=== PATIENT | female | born 1930 | race Caucasian/White ===

== ENCOUNTER → 2016-10-02 | Outpatient (CLI) | payer MEDICARE ==
[2016-10-02 08:38] LABS: ANION GAP 13 (5-19); BLOOD UREA NITROGEN 17 mg/dL (7-20); CALCIUM 9.3 mg/dL (8.4-10.2); CARBON DIOXIDE 31 mmol/L (22-30); CHLORIDE 102 mmol/L (98-107); CREATININE RESULT 0.64 mg/dL (0.52-1.25); GLUCOSE 124 mg/dL (75-110); POTASSIUM 4.4 mmol/L (3.6-5.0); SODIUM 145.9 mmol/L (137-145)
== END ==
LOC: LCAL 07:33
PROVIDERS: ATTEND Physician Assistant
DX: Z09 Encounter for follow-up examination after completed treatment for conditions other than malignant neoplasm (principal)
CPT/HCPCS: 36415; 80048

== ENCOUNTER 2017-03-04 16:56 | Inpatient (IN) | payer MEDICARE ==
--- NOTE | 2017-03-04 18:18 | ER Document Report ---
ED Fall - General Chief Complaint: Fall Injury Stated Complaint: FALL,RIGHT HIP PAIN Time Seen by Provider: 03/04/17 17:17 Notes: The patient is an 86-year-old female, PMHx HTN, DM, slight dementia, who presents from [facility] after she fell earlier today after she tried to grab a cart on wheels. She hit her right hip, right hand and right forehead. She is not on any blood thinners per [facility] notes. Pt 1 mg Dilaudid by EMS prior to arrival with relief of her pain. She is not in pain when she remains still. She denies open wounds, numbness, tingling, blurry vision, neck pain, chest pain, shortness of breath, abdominal pain, nausea or vomiting. TRAVEL OUTSIDE OF THE [place] IN LAST 30 DAYS: No - Related data Allergies/Adverse Reactions: morphine [Morphine] Allergy (Verified 11/22/12 19:07) Home Medications: Current Home Medications Acetaminophen [Tylenol Extra Strength] 500 mg PO Q8H PRN 03/04/17 [History] Allopurinol [Zyloprim 100 mg Tablet] 200 mg PO DAILY 03/04/17 [History] Carboxymethylcellulose Sodium [Refresh Tears] 15 ml OP ASDIR PRN 03/04/17 [ History] Donepezil HCl [Aricept 5 mg Tablet] 10 mg PO DAILY 03/04/17 [History] Ergocalciferol (Vitamin D2) [Ergocalciferol] 8,000 unit PO ASDIR PRN 03/04/17 [ History] Meclizine HCl 25 mg PO TID PRN 03/04/17 [History] Nystatin 1 each PO ASDIR PRN 03/04/17 [History] Past Medical History - General Information source: Patient - Social History Smoking Status: Never Smoker Chew tobacco use (# tins/day): No Frequency of alcohol use: None Drug Abuse: None Family History: Reviewed & Not Pertinent Review of Systems - Review of Systems Notes: REVIEW OF SYSTEMS: CONSTITUTIONAL: -fevers, -chills EENT: -eye pain, -difficulty swallowing, -nasal congestion CARDIOVASCULAR: -chest pain, -syncope. RESPIRATORY: -cough, -SOB GASTROINTESTINAL: -abdominal pain, -nausea, -vomiting, -diarrhea GENITOURINARY: -dysuria, -hematuria MUSCULOSKELETAL: +right hip and hand pain, -back pain, -neck pain SKIN: +right hand abrasion HEMATOLOGIC: -easy bruising or bleeding. LYMPHATIC: -swollen, enlarged glands. NEUROLOGICAL: -altered mental status or loss of consciousness, -headache, - neurologic symptoms PSYCHIATRIC: -anxiety, -depression. ALL OTHER SYSTEMS REVIEWED AND NEGATIVE. Physical Exam - Vital signs Vitals: Resp BP Pulse Ox 14 176/90 H 97 03/04/17 17:16 03/04/17 17:16 03/04/17 17:16 - Notes Notes: PHYSICAL EXAMINATION: GENERAL: Well-appearing, well-nourished and in no acute distress. HEAD: Right forehead contusion, normocephalic. EYES: Pupils equal round and reactive to light, extraocular movements intact, sclera anicteric, conjunctiva are normal. ENT: nares patent, oropharynx clear without exudates. Moist mucous membranes. NECK: Normal range of motion, supple without lymphadenopathy LUNGS: Breath sounds clear to auscultation bilaterally and equal. No wheezes rales or rhonchi. HEART: Regular rate and rhythm without murmurs ABDOMEN: Soft, nontender, normoactive bowel sounds. No guarding, no rebound. No masses appreciated. EXTREMITIES: Abrasions over right dorsal surface of right hand, tenderness over right lateral hip, strong distal pulses, no open wounds, N/V intact distally, painful right hip ROM, no pitting or edema. No cyanosis. NEUROLOGICAL: Cranial nerves grossly intact. Normal speech. Normal sensory and motor exams. PSYCH: Normal mood, normal affect. SKIN: Warm, Dry, normal turgor, no rashes or lesions noted. Course - Re-evaluation Re-evalutation: 03/04/17 19:38 Pt with impacted femoral neck fracture after fall. Fall was mechanical in nature. CT Head and x-ray of right hand negative for fractures or head bleeds. Spoke to Dr. Orta and he plans on operating in the morning. Will keep patient NPO after midnight. Pt's pain returned and will provide an additional dose of Dilaudid. Recommends admitting to hospitalist. 03/04/17 19:[address] Elizabeth and will admit to Inpatient Tele. - Vital Signs Vital signs: Temp Pulse Resp BP Pulse Ox 98.1 F 17 158/76 H 92 03/04/17 17:27 03/04/17 19:01 03/04/17 19:01 03/04/17 19:01 - Laboratory Result Diagrams: 03/04/17 18:20 03/04/17 18:20 Laboratory results interpreted by me: 03/04/17 03/04/17 18:20 18:20 RDW 15.4 H Glucose 154 H - Diagnostic Test Radiology reviewed: Image reviewed, Reports reviewed Radiology results interpreted by me: Right femoral x-ray: Impacted right hip fracture Right hand x-ray: NAD CT Head: NAD - EKG Interpretation by Me EKG shows normal: Sinus rhythm, [place], Intervals, QRS Complexes, ST-T Waves Rate: Normal Discharge - Discharge Clinical Impression: Right femoral fracture Qualifiers: Encounter type: initial encounter Femur location: neck Fracture type: closed Qualified Code(s): S72.001A - Fracture of unspecified part of neck of right femur, initial encounter for closed fracture Condition: Stable Disposition: ADMITTED INPATIENT Admitting Provider: [facility] Unit Admitted: Telemetry Referrals: JOSEPH HOU MD [Primary Care Provider] - Follow up as needed
--- NOTE | 2017-03-04 18:23 | RADIOLOGY REPORT (SQ) ---
EXAM DESCRIPTION: HIP RIGHT AP/LATERAL COMPLETED DATE/TIME: 03/04/2017 6:09 pm REASON FOR STUDY: right hip pain COMPARISON: None. NUMBER OF VIEWS: Two views. TECHNIQUE: AP pelvis and additional frog-leg view of the right hip. LIMITATIONS: None. FINDINGS: MINERALIZATION: Normal. RIGHT HIP: There is an impacted fracture of the femoral neck. LEFT HIP: No fracture or dislocation. No worrisome bone lesions. PUBIS AND ISCHIUM: No fracture. PELVIS: No fracture. SACRUM: No fracture or dislocation. No worrisome bone lesions. LOWER LUMBAR SPINE: No fracture or dislocation. No worrisome bone lesions. No significant disc disea se. SOFT TISSUES: No findings. OTHER: No other significant finding. IMPRESSION: Impacted fracture of the right femoral neck. TECHNICAL DOCUMENTATION: JOB ID: [id number] [employer]- All Rights Reserved
--- NOTE | 2017-03-04 18:23 | RADIOLOGY REPORT (SQ) ---
EXAM DESCRIPTION: CT HEAD WITHOUT COMPLETED DATE/TIME: 03/04/2017 6:12 pm REASON FOR STUDY: fall, head injury COMPARISON: 03/05/2016. TECHNIQUE: Axial images acquired through the brain without intravenous contrast. Images reviewed wi th bone, brain and subdural windows. Images stored on PACS. All CT scanners at this facility use dose modulation, iterative reconstruction, and/or weight based d osing when appropriate to reduce radiation dose to as low as reasonably achievable (ALARA). [facility]: Dose Right [facility]: CareDose [facility]: Dose Right [facility]: Teradose 4D [facility]: TalkSession RADIATION DOSE: Up-to-date CT equipment and radiation dose reduction techniques were employed. CTDIv ol: 64.6 mGy. DLP: 1034 mGy-cm.mGy. LIMITATIONS: None. FINDINGS: VENTRICLES: Prominent. CEREBRUM: No masses. No hemorrhage. No midline shift. Areas of low density in the white matter mos t likely due to chronic micro-vascular ischemic change. No evidence for acute infarction. CEREBELLUM: No masses. No hemorrhage. No alteration of density. No evidence for acute infarction. EXTRAAXIAL SPACES: Age-related involutional change. No fluid collections. No masses. ORBITS AND GLOBE: No intra- or extraconal masses. Normal contour of globe without masses. CALVARIUM: No fracture. PARANASAL SINUSES: No fluid or mucosal thickening. SOFT TISSUES: Small right frontal scalp hematoma. OTHER: No other significant finding. IMPRESSION: SOFT TISSUE INJURY WITHOUT FRACTURE OR ACUTE INTRACRANIAL PROCESS IDENTIFIED. TECHNICAL DOCUMENTATION: JOB ID: [id number] Quality ID # [id number]: Final reports with documentation of one or more dose reduction techniques (e.g., Au tomated exposure control, adjustment of the mA and/or kV according to patient size, use of iterative reconstruction technique) 2010 [employer]- All Rights Reserved
--- NOTE | 2017-03-04 18:25 | RADIOLOGY REPORT (SQ) ---
EXAM DESCRIPTION: HAND RIGHT 3 VIEWS COMPLETED DATE/TIME: 03/04/2017 6:09 pm REASON FOR STUDY: right hand injury COMPARISON: None. EXAM PARAMETERS: NUMBER OF VIEWS: Three views. TECHNIQUE: AP, lateral and oblique radiographic images acquired of the right hand. LIMITATIONS: Limited evaluation of areas that are obscured by a patient's IV and pulsometer. FINDINGS: MINERALIZATION: Osteopenia. BONES: No acute fracture or dislocation. No worrisome bone lesions. 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 SOFT TISSUES: No soft tissue swelling. No foreign body. OTHER: No other significant finding. IMPRESSION: DEGENERATIVE CHANGE ABOVE WITHOUT ACUTE OSSEOUS ABNORMALITY IDENTIFIED. TECHNICAL DOCUMENTATION: JOB ID: [id number] [employer]- All Rights Reserved
[2017-03-04 18:36] LABS: ABSOLUTE EOSINOPHILS # (AUTO) 0.1 10^3/uL (0.0-0.6); ABSOLUTE LYMPHOCYTES (AUTO) 1.6 10^3/uL (0.5-4.7); ABSOLUTE MONOCYTES (AUTO) 0.8 10^3/uL (0.1-1.4); ABSOLUTE NEUT (AUTO) 6.4 10^3/uL (1.7-8.2); BASOPHILS % (AUTO) 0.5 % (0-2); EOSINOPHILS % (AUTO) 1.1 % (0-6); HEMATOCRIT 39.3 % (36.0-47.0); HEMOGLOBIN 12.7 g/dL (12.0-15.5); HGB HCT DIFFERENCE -1.2; LYMPHOCYTES % (AUTO) 18.4 % (13-45); MEAN CORPUSCULAR HEMOGLOBIN 27.7 pg (27.0-33.4); MEAN CORPUSCULAR HGB CONC 32.3 g/dL (32.0-36.0); MEAN CORPUSCULAR VOLUME 86 fl (80-97); MONOCYTES % (AUTO) 8.5 % (3-13); RED BLOOD COUNT 4.58 10^6/uL (3.72-5.28); RED CELL DISTRIBUTION WIDTH 15.4 % (11.5-14.0); SEGMENTED NEUTROPHILS % (AUTO) 71.5 % (42-78); WHITE BLOOD COUNT 8.9 10^3/uL (4.0-10.5)
[2017-03-04 19:10] LABS: ANION GAP 12 (5-19); BLOOD UREA NITROGEN 14 mg/dL (7-20); CALCIUM 9.3 mg/dL (8.4-10.2); CARBON DIOXIDE 26 mmol/L (22-30); CHLORIDE 102 mmol/L (98-107); CREATININE RESULT 0.64 mg/dL (0.52-1.25); GLUCOSE 154 mg/dL (75-110); POTASSIUM 4.2 mmol/L (3.6-5.0); SODIUM 139.9 mmol/L (137-145)
[2017-03-04] MEDS ORDERED: HYDROMORPHONE HCL INJ/PF 2 MG/ML AMPULE IV ONE (19:35)
[2017-03-04 19:39] LABS: PARTIAL THROMBOPLASTIN TIME 28.4 SEC (23.5-35.8)
--- NOTE | 2017-03-04 20:01 | RADIOLOGY REPORT (SQ) ---
EXAM DESCRIPTION: CHEST SINGLE VIEW COMPLETED DATE/TIME: 03/04/2017 7:50 pm REASON FOR STUDY: pre-op COMPARISON: None. EXAM PARAMETERS: NUMBER OF VIEWS: One view. TECHNIQUE: Single frontal radiographic view of the chest acquired. RADIATION DOSE: NA LIMITATIONS: None. FINDINGS: LUNGS AND PLEURA: No opacities, masses or pneumothorax. No pleural effusion. MEDIASTINUM AND HILAR STRUCTURES: No masses. Contour normal. HEART AND VASCULAR STRUCTURES: Heart normal in size. Normal vasculature. BONES: No acute findings. HARDWARE: None in the chest. OTHER: No other significant finding. IMPRESSION: NO ACUTE RADIOGRAPHIC FINDING IN THE CHEST. TECHNICAL DOCUMENTATION: JOB ID: [id number]
[2017-03-04 20:31] LABS: ADD ON TESTING BLD IN LAB ACKNOWLEDGE
[2017-03-04] MEDS ORDERED: GLUCAGON,HUMAN RECOMB 1 MG INJ IM PRN (20:46)
[2017-03-04] MEDS ORDERED: DEXTROSE 40% GEL 15 GM TUBE PO PRN ×2 (20:46)
[2017-03-04] MEDS ORDERED: DEXTROSE 50%-WATER 25 GM/50 ML DISP.SYRIN IV PRN ×2 (20:46)
[2017-03-04] MEDS ORDERED: MAGNESIUM HYDROXIDE SUSP 30 ML UDCUP PO PRN (20:50)
[2017-03-04 20:52] LABS: ALANINE AMINOTRANSFERASE 31 U/L (9-52); ALBUMIN 4.3 g/dL (3.5-5.0); ALKALINE PHOSPHATASE 57 U/L (38-126); ASPARTATE AMINO TRANSFERASE 46 U/L (14-36); BILIRUBIN,DIRECT 0.4 mg/dL (0.0-0.4); BILIRUBIN,TOTAL 0.5 mg/dL (0.2-1.3); MAGNESIUM 1.8 mg/dL (1.6-2.3); TOTAL PROTEIN 8.1 g/dL (6.3-8.2)
[2017-03-04 21:09] LABS: APPEARANCE,URINE CLEAR; BILIRUBIN,URINE NEGATIVE (NEGATIVE); GLUCOSE, URINE NEGATIVE (NEGATIVE); KETONES,URINE NEGATIVE (NEGATIVE); LEUKOCYTE ESTERASE,URINE NEGATIVE (NEGATIVE); NITRITE,URINE NEGATIVE (NEGATIVE); PROTEIN,URINE NEGATIVE (NEGATIVE); URINE SPECIFIC GRAVITY 1.011; UROBILINOGEN,URINE NEGATIVE mg/dL (<2.0)
--- NOTE | 2017-03-04 21:15 | PDOC H&P ---
History of Present Illness Admission Date/PCP: 03/04/17 19:54 JOSEPH HOU MD [place], [place]--dizziness Cards Dr. Cook/Melida Patient complains of: right hip pain, s/p fall History of Present Illness: RUTH ANN MATUTE is a 86 year old female with underlying hypertension , type 2 diabetes mellitus, hypothyroidism, hyperlipidemia, mild reflux, mild bruising, arthritis and gout, "slight" dementia, along with partial hearing loss who presents to the emergency room for evaluation of above complaint. Patient has been discussed with emergency room physician who evaluated the patient. She is a resident of [facility]. As she was attempting to walk earlier today, she reached to grab a cart on wheels and it reportedly rolled out from under her. She fell, striking her right hand, hip, and forehead. No loss of consciousness. Workup has revealed closed right hip fracture. Emergency room physician has discussed with Dr. Orta, on-call orthopedics, who has agreed to manage her orthopedic problems. Prior to the above event, no specific complaints, including nausea vomiting, fever or chills, chest or abdominal pain, diarrhea or dysuria. Patient states that on a normal day, she tries to walk at least 1/2 mile a day, in various stages. Denies any dyspnea on exertion, chest pain or claudication. Currently resting quietly, having only mild discomfort at the injury site, which obviously worsens with any movement of or contact with site. Laboratory results are listed in [employer] and are reviewed. X-ray summary results are listed below, with full report(s) reviewed. . EKG reviewed. No old EKG available for comparison. Social history/personal habits: . Has lived at [facility] for approximately a year. No tobacco use since 1991. Rare alcohol use. Denies illicit drug use. Allergies/adverse reactions are listed in [employer] and are reviewed. No problems with Dilaudid. Uncertain if she can tolerate Percocet or Vicodin. Home medications initially autopopulated into [employer] may not accurately reflect patient's true medications, dosages, and/or frequencies. surveillance technician has reconciled her medications from [facility]. REVIEW OF SYSTEMS: Constitutional: No fever or chills. Eyes: Wears glasses ENT: No swallowing problems or complaints. Partial hearing loss. Pulmonary: No current complaints. Cardiovascular: No current complaints, including chest pain. Gastrointestinal: No current complaints, including nausea or vomiting. Skin: No current complaints, including rashes. Hematologic: Easy bruising. Neurologic: No current complaints, including numbness or tingling. Musculoskeletal: See history and present illness. Psychiatric: Denies anxiety or depression. Endocrine: No current complaints, including polyuria. Genitourinary: No current complaints, including dysuria. PHYSICAL EXAMINATION: 5 feet 6 inches tall. 85.3 kg. BMI 30.3 kg/m. Blood pressure 135/77. Pulse 73 and regular. 94% saturation on 1-1/2 L oxygen per nasal cannula. Respirations are 12 and unlabored. Temperature 98.1. Slightly obese otherwise well-developed elderly female appearing perhaps a bit younger than her stated age. Smiling pleasant awake alert and cooperative. No obvious distress other than perhaps mildly anxious. Sister, granddaughter, and son-in-law are present at her side; patient approves Skin is warm and dry. No grossly obvious evidence of rash in areas of skin examined. No subcutaneous nodules palpated. ENT: Slightly hard of hearing to normal conversation. Tongue midline on protrusion pink and slightly tacky. Eyes: No scleral icterus. Pupils equal and reactive to light at 4 mm. [place] conjunctivae. Very mild soft tissue swelling and ecchymosis at the lateral aspect of her right eyebrow. No obvious evidence of globe injury. Neck is supple and nontender to gentle active range of motion and palpation. Midline trachea. No palpable thyroid nodule mass enlargement or tenderness. Lymphatic: No palpable cervical or clavicular nodes. Neck and lymphatic exams limited by patient body habitus. Psychiatric: Reasonable insight into acute and chronic medical issues. Oriented to time location and why here. Lungs: Auscultation reveals clear and equal breath sounds bilaterally. No use of accessory respiratory muscles. Cardiovascular: Heart regular rate and rhythm, without gallop murmur or rub. No carotid or abdominal aortic bruits. No ankle or pedal edema. Faintly palpable dorsalis pedis pulses. Abdomen:soft slightly obese nontender with positive bowel sounds. Unable to adequately evaluate abdomen for masses or organomegaly due to body habitus. Extremities: Feet are warm and dry. No calf tenderness to compression. No grossly obvious visual evidence of calf swelling. Gentle manipulation of left lower extremity fails to reveal any obvious evidence of injury or instability to the hip or ankle. Slight external rotation and shortening of the right lower extremity; no manipulation attempted due to her injury. Neurologic: Moves upper extremities grossly normally. Left patellar reflex absent; not attempted on right due to her injury. Absent Babinski. Light touch is intact at feet. Dorsiflexion and plantarflexion of feet 5 / 5 and symmetric. - Past Medical History Cardiac Medical History: Reports: Hyperlipidema, Hypertension Denies: Congestive Heart Failure, DVT, Myocardial Infarction, Pulmonary Embolism Pulmonary Medical History: Denies: Asthma, Chronic Obstructive Pulmonary Disease (COPD), Sleep Apnea EENT Medical History: Reports: Eyes - Wears glasses, Ears - Partial hearing loss Denies: Throat Neurological Medical History: Denies: Hemorrhagic CVA, Ischemic CVA, Seizures Endocrine Medical History: Reports: Diabetes Mellitus Type 2, Hypothyroidism Denies: Diabetes Mellitus Type 1, Hyperthyroidism Renal/ Medical History: Reports: Other - "Overactive bladder" Malignancy Medical History: Reports: Skin Cancer - Previous excision of GI Medical History: Reports: Gastroesophageal Reflux Disease - Mild Denies: Cirrhosis, Hepatitis, Peptic Ulcer Disease Musculoskeltal Medical History: Reports: Arthritis, Gout Skin Medical History: Reports: None Psychiatric Medical History: Denies: Alcohol Dependency, Depression, General Anxiety Disorder, Substance Abuse, Tobacco Dependency Hematology: Reports: Other - Easy bruising Infectious Medical History: Denies: Clostridium Difficile, Hepatitis B, Hepatitis C, Methicillin- Resistant Staph Aureus Past Surgical History Past Surgical History: Reports: Hysterectomy, Orthopedic Surgery - Back surgery , Other - Excision of skin cancers; thyroid surgery Social History Information Source: Patient, Emergency Med Personnel, [facility] Records [facility] Smoking Status: Former Smoker Frequency of Alcohol Use: Rare Drugs: None - Advance Directive Resuscitation Status: Full Code Surrogate healthcare decision maker:: Son-in-law Chi, and sister Fozia Family History Family History: Reviewed & Not Pertinent Parental Family History Reviewed: Yes - Father of cirrhosis; mother of congestive heart failure Children Family History Reviewed: Yes - Sibling(s) Family History Reviewed.: Yes Medication/Allergy Home Medications: Glipizide [Glucotrol Xl 5 mg Tab.er] 5 mg PO BID 11/22/12 Levothyroxine Sodium [Synthroid 0.1 mg Tablet] 100 mcg PO DAILY 11/22/12 Metformin HCl [Glucophage 500 mg Tablet] 500 mg PO BIDACBS 11/22/12 Metoprolol Tartrate [Lopressor 50 mg Tablet] 50 mg PO Q12 11/22/12 Pravastatin Sodium [Pravachol] 20 mg PO QHS 11/22/12 Sertraline HCl [Zoloft 50 mg Tablet] 50 mg PO QHS 11/22/12 Valsartan [Diovan] 320 mg PO DAILY 11/22/12 Allopurinol [Zyloprim 100 mg Tablet] 200 mg PO DAILY 03/04/17 Amlodipine Besylate [Norvasc 5 mg Tablet] 5 mg PO DAILY 03/04/17 Carboxymethylcellulose Sodium [Refresh Tears] 1 drop OU Q2HP PRN 03/04/17 Clotrimazole 1 applic TP DAILY 03/04/17 Donepezil HCl [Aricept 5 mg Tablet] 10 mg PO DAILY 03/04/17 Ergocalciferol (Vitamin D2) [Vitamin D2] 50,000 unit PO WE@1000 03/04/17 Loperamide HCl [Imodium A-D] 2 mg PO DAILYP PRN 03/04/17 Meclizine HCl 25 mg PO TID PRN 03/04/17 Nystatin 1 each PO DAILYP PRN 03/04/17 Solifenacin Succinate [Vesicare] 5 mg PO DAILY 03/04/17 Docusate Sodium [Colace 100 mg Capsule] 100 mg PO BID capsule 03/07/17 Enoxaparin Sodium [Lovenox Inj 40 mg/0.4 ml Disp.syrin] 40 mg SUBCUT QHS disp.syrin 03/07/17 Magnesium Hydroxide [Milk of Magnesia 30 ml Udcup] 30 ml PO Q48HP PRN udc 03/07 Oxycodone HCl 5 mg PO Q6HP PRN #10 capsule 03/07/17 Allergies/Adverse Reactions: morphine [Morphine] Allergy (Verified 03/04/17 20:49) rash Physical Exam Vital Signs: Temp Pulse Resp BP Pulse Ox 98.1 F 17 135/77 H 95 03/04/17 17:27 03/04/17 20:02 03/04/17 20:02 03/04/17 20:02 Results Impressions: Hip/Pelvis X-Ray 03/04/17 17:17 IMPRESSION: Impacted fracture of the right femoral neck. Hand X-Ray 03/04/17 17:49 IMPRESSION: DEGENERATIVE CHANGE ABOVE WITHOUT ACUTE OSSEOUS ABNORMALITY IDENTIFIED. Head CT 03/04/17 17:49 IMPRESSION: SOFT TISSUE INJURY WITHOUT FRACTURE OR ACUTE INTRACRANIAL PROCESS IDENTIFIED. Chest X-Ray 03/04/17 19:34 IMPRESSION: NO ACUTE RADIOGRAPHIC FINDING IN THE CHEST. Assessment & Plan - Diagnosis (1) Fracture of femoral neck, right, closed Qualifiers: Encounter type: initial encounter Qualified Code(s): S72.001A - Fracture of unspecified part of neck of right femur, initial encounter for closed fracture Is this a current diagnosis for this admission?: YesPlan: Orthopedics consult; Dr. Orta has been contacted by emergency room physician; he agrees to manage her injury. Preop cardiology consult. Knee high SCDs for DVT prophylaxis; medication prophylaxis per orthopedics, per usual protocol. Impression and plans were discussed with patient and family, all of whom concur. Time spent in evaluation and management of patient: 73 minutes. (2) Diabetes mellitus type 2 in obese Is this a current diagnosis for this admission?: YesPlan: Diabetic cardiac diet. N.p.o. after midnight for planned surgery on the . Accu-Cheks with appropriate sliding scale coverage. Resume home medications as appropriate once these have been determined and reviewed. (3) HLD (hyperlipidemia) Qualifiers: Hyperlipidemia type: unspecified Qualified Code(s): E78.5 - Hyperlipidemia, unspecified Is this a current diagnosis for this admission?: YesPlan: Resume home medications as appropriate once these have been determined and reviewed. (4) HTN (hypertension) Qualifiers: Hypertension type: essential hypertension Qualified Code(s): I10 - Essential (primary) hypertension Is this a current diagnosis for this admission?: YesPlan: Resume home medications as appropriate once these have been determined and reviewed. (5) Hypothyroid Qualifiers: Hypothyroidism type: unspecified Qualified Code(s): E03.9 - Hypothyroidism, unspecified Is this a current diagnosis for this admission?: YesPlan: TSH pending. Resume home medications as appropriate once these have been determined and reviewed. - Inpatient Certification Based on my medical assessment, after consideration of the patient's comorbidities, presenting symptoms, or acuity I expect that the services needed warrant INPATIENT care.: Yes I certify that my determination is in accordance with my understanding of Medicare's requirements for reasonable and necessary INPATIENT services [42 CFR 412.3e].: Yes Medical Necessity: Need for Pain Control, Need for Surgery, Risk of Diagnosis Which Will Require Inpatient Eval/Care/Monitoring Post Hospital Care: D/C or Transfer Summary
[2017-03-04] MEDS: ATORVASTATIN CALCIUM 10 MG TABLET PO SCH (22:13)
[2017-03-04] MEDS: METOPROLOL TARTRATE 50 MG TABLET PO SCH (22:13)
--- NOTE | 2017-03-04 22:28 | EKG REPORT ---
SEVERITY:- ABNORMAL ECG - SINUS RHYTHM MULTIPLE ATRIAL PREMATURE COMPLEXES PROBABLE INFERIOR INFARCT, OLD ABNRM R PROG, CONSIDER ASMI OR LEAD PLACEMENT : Confirmed by: Yue Singh 04-Mar-2017 22:28:00
[2017-03-04] MEDS ORDERED: POLYVINYL ALCOHOL 1.4% OPH SOLN 15 ML OU PRN (23:15)
[2017-03-04 23:48] LABS: FREE T3 4.06 pg/mL (2.77-5.27)
[2017-03-04] MEDS: HYDROMORPHONE HCL INJ/PF 2 MG/ML AMPULE IV PRN (23:54)
[2017-03-05] MEDS ORDERED: NORMAL SALINE 1000 ML 1,000 ML IV PRN (00:01)
[2017-03-05] MEDS: HYDROMORPHONE HCL INJ/PF 2 MG/ML AMPULE IV PRN ×3 (03:42→23:51)
--- NOTE | 2017-03-05 07:45 | PDOC CONSULTATION ---
Consultation Consult Date: 03/05/17 Consult reason:: Hip pain History of Present Illness Admission Date/PCP: 03/04/17 20:50 JOSEPH HOU MD History of Present Illness: Patient is a year-old white female with a component of dementia who fell and was unable to weight-bear on her right lower extremity. She was evaluated in emergency room where a valgus impacted right femoral neck fracture was identified. Orthopedics is consulted for fracture management. Past Medical History Cardiac Medical History: Reports: Hyperlipidema, Hypertension Denies: Congestive Heart Failure, DVT, Myocardial Infarction, Pulmonary Embolism Pulmonary Medical History: Denies: Asthma, Chronic Obstructive Pulmonary Disease (COPD), Sleep Apnea EENT Medical History: Reports: Eyes - Wears glasses, Ears - Partial hearing loss , Other - Easy bruising Denies: Throat Neurological Medical History: Denies: Hemorrhagic CVA, Ischemic CVA, Seizures Endocrine Medical History: Reports: Diabetes Mellitus Type 2, Hypothyroidism Denies: Diabetes Mellitus Type 1, Hyperthyroidism Renal/ Medical History: Reports: Other - "Overactive bladder" Malignancy Medical History: Reports: Skin Cancer - Previous excision of GI Medical History: Reports: Gastroesophageal Reflux Disease - Mild Denies: Cirrhosis, Hepatitis, Peptic Ulcer Disease Musculoskeltal Medical History: Reports: Arthritis, Gout Skin Medical History: Reports: None Psychiatric Medical History: Denies: Alcohol Dependency, Depression, General Anxiety Disorder, Substance Abuse, Tobacco Dependency Hematology: Reports: Other - Easy bruising Infectious Medical History: Denies: Clostridium Difficile, Hepatitis B, Hepatitis C, Methicillin- Resistant Staph Aureus Past Surgical History Past Surgical History: Reports: Hysterectomy, Orthopedic Surgery - Back surgery , Other - Excision of skin cancers; thyroid surgery Social [facility] Information [facility] Smoking Status: Former Smoker Frequency of Alcohol Use: Rare Drugs: None Hx Prescription Drug Abuse: No - Advance Directive Resuscitation Status: Full Code Family History Family History: Reviewed & Not Pertinent Parental Family History Reviewed: No Children Family History Reviewed: No Sibling(s) Family History Reviewed.: No Medication/Allergy Home Medications: Glipizide [Glucotrol Xl 5 mg Tab.er] 5 mg PO BID 11/22/12 Levothyroxine Sodium [Synthroid 100 Mcg Tablet] 100 mcg PO DAILY 11/22/12 Metformin HCl [Glucophage 500 Mg Tablet] 500 mg PO BIDACBS 11/22/12 Metoprolol Tartrate [Lopressor 50 mg Tablet] 50 mg PO Q12 11/22/12 Pravastatin Sodium [Pravachol] 20 mg PO QHS 11/22/12 Sertraline HCl [Zoloft 50 Mg Tablet] 50 mg PO QHS 11/22/12 Valsartan [Diovan] 320 mg PO DAILY 11/22/12 Acetaminophen [Tylenol Extra Strength] 500 mg PO Q8H PRN 03/04/17 Allopurinol [Zyloprim 100 mg Tablet] 200 mg PO DAILY 03/04/17 Amlodipine Besylate [Norvasc 5 mg Tablet] 5 mg PO DAILY 03/04/17 Carboxymethylcellulose Sodium [Refresh Tears] 1 drop OU Q2HP PRN 03/04/17 Clotrimazole 1 applic TP DAILY 03/04/17 Colchicine [Colchicine 0.6 mg Tablet] 0.6 mg PO Q2HP PRN 03/04/17 Colchicine [Colchicine 0.6 mg Tablet] 1.2 mg PO ASDIR PRN 03/04/17 Donepezil HCl [Aricept 5 mg Tablet] 10 mg PO DAILY 03/04/17 Ergocalciferol (Vitamin D2) [Vitamin D2] 50,000 unit PO WE@1000 03/04/17 Guaifenesin/P-Ephed HCl [Pseudoephedrine-Guaif Sr Tab] 1 tab PO Q12HP PRN Loperamide HCl [Imodium A-D] 2 mg PO DAILYP PRN 03/04/17 Meclizine HCl 25 mg PO TID PRN 03/04/17 Nystatin 1 each PO DAILYP PRN 03/04/17 Solifenacin Succinate [Vesicare] 5 mg PO DAILY 03/04/17 Allergies/Adverse Reactions: morphine [Morphine] Allergy (Verified 03/04/17 20:49) rash Review of Systems ROS unobtainable: Due to mental status Physical Exam Vital Signs: Temp Pulse Resp BP Pulse Ox 37.0 C 73 17 154/77 H 94 03/05/17 03:50 03/05/17 03:50 03/05/17 03:50 03/05/17 03:50 03/05/17 03:50 Intake & Output 03/04/17 03/05/17 03/06/17 06:59 06:59 06:59 Intake Total 343 Balance 343 General appearance: PRESENT: mild distress Head exam: PRESENT: normocephalic Respiratory exam: PRESENT: unlabored Cardiovascular exam: PRESENT: RRR Pulses: PRESENT: +1 pedal pulses bilateral Vascular exam: PRESENT: normal capillary refill GI/Abdominal exam: PRESENT: soft Rectal exam: PRESENT: deferred Extremities exam: PRESENT: other - Lengths are equal. Any passive range of motion of the right lower extremity results in pain. Neurological exam: PRESENT: alert, awake, oriented to person Skin exam: PRESENT: dry, intact, warm. ABSENT: cyanosis, rash Results Laboratory Results: 03/04/17 23:05 Free T4 1.20 Free T3 pg/mL 4.06 Impressions: Hip/Pelvis X-Ray 03/04/17 17:17 IMPRESSION: Impacted fracture of the right femoral neck. Hand X-Ray 03/04/17 17:49 IMPRESSION: DEGENERATIVE CHANGE ABOVE WITHOUT ACUTE OSSEOUS ABNORMALITY IDENTIFIED. Head CT 03/04/17 17:49 IMPRESSION: SOFT TISSUE INJURY WITHOUT FRACTURE OR ACUTE INTRACRANIAL PROCESS IDENTIFIED. Chest X-Ray 03/04/17 19:34 IMPRESSION: NO ACUTE RADIOGRAPHIC FINDING IN THE CHEST. Status: Imported from PACS Assessment & Plan - Diagnosis (1) Right femoral fracture Qualifiers: Encounter type: initial encounter Femur location: neck Fracture type: closed Qualified Code(s): S72.001A - Fracture of unspecified part of neck of right femur, initial encounter for closed fracture Is this a current diagnosis for this admission?: YesPlan: 86-year-old white female with a minimally displaced right femoral neck fracture. I think the simplest solution would be percutaneous pinning under nail MAC anesthesia. Attempt will be scheduled for later today pending on OR availability. - Time Time Spent: 50 to 70 Minutes Anticipated discharge: SNF Within: Other
[2017-03-05] MEDS ORDERED: CEFAZOLIN 2 GM/D5W RTU 2 GM/50 ML RTUPB IV PRN (07:49)
[2017-03-05] MEDS ORDERED: KETOROLAC TROMETHAMINE INJ/PF 30 MG/1 ML SDV IV ONE (08:05)
[2017-03-05] MEDS: RINGERS SOLUTION,LACTATED 1,000 ML IV PRN ×3 (08:33→21:53)
[2017-03-05] MEDS ORDERED: BUPIVACAINE HCL 0.25% /EPINEPHRINE INJ/PF 30 ML SDV ONE (08:58)
[2017-03-05] MEDS ORDERED: LIDOCAINE 1% INJ-PF (10 MG/ML) 30 ML SDV ONE (08:58)
[2017-03-05] MEDS ORDERED: MIDAZOLAM 2 MG/2 ML INJ ONE (09:03)
[2017-03-05] MEDS ORDERED: PROPOFOL INJ 200 MG/20 ML VIAL IV ONE (09:03)
[2017-03-05] MEDS ORDERED: HYDROMORPHONE HCL INJ/PF 2 MG/ML AMPULE ONE (09:03)
[2017-03-05] MEDS ORDERED: CEFAZOLIN INJ 1 GM VIAL ONE (09:04)
[2017-03-05] MEDS ORDERED: FENTANYL CITRATE INJ/PF 100 MCG/2 ML AMPUL IV PRN ×3 (09:58)
[2017-03-05] MEDS ORDERED: ERGOCALCIFEROL (VITAMIN D2) 50000 UNIT (1.25 MG) CAPSULE PO SCH (10:00)
[2017-03-05] MEDS ORDERED: ALLOPURINOL 100 MG TABLET PO SCH (10:00)
[2017-03-05] MEDS ORDERED: (PENDING PHARMACY ID) (Valsartan [Diovan] 320 MG) PO SCH (10:00)
--- NOTE | 2017-03-05 10:26 | Operative Report ---
Operative Report DATE OF SURGERY: 03/05/17 PREOPERATIVE DIAGNOSIS: Right femoral neck fracture OPERATION: Cutaneous fixation right femoral neck fracture SURGEON: VINCE YATES ANESTHESIA: LMAC PROCEDURE: Patient supine on the fracture table the right hip fracture is evaluated fluoroscopically. In AP projection it is absolutely anatomic. In the lateral projection there is an angular gap anteriorly at the base of the femoral neck. This is attempted to be reduced with a combination of gentle distraction and internal rotation of the lower extremity with a significant improvement in. Subsequently the skin is prepped and draped in a sterile fashion. A 1 inch was made and sharp dissection was carried incision down to the cortical bone. Under fluoroscopic guidance 3 guide pins were placed for the [place] 6.5 titanium system through the lateral cortex and up into the femoral neck and head. Subsequently a 90, 95, and 100 screw were placed over the guide tips to appropriate depth. Fracture reduction as well as the screw is assessed fluoroscopically and felt to be adequate. The pins are removed. The wound is irrigated. It is closed with interrupted Vicryl followed by raymundo. Sterile dressings applied and the patient's return to the PACU.
[2017-03-05] MEDS: VALSARTAN 160 MG TABLET PO SCH (10:31)
[2017-03-05] MEDS ORDERED: RINGERS SOLUTION,LACTATED 1,000 ML IV PRN ×2 (10:56→11:50)
--- NOTE | 2017-03-05 11:01 | RADIOLOGY REPORT (SQ) ---
EXAM DESCRIPTION: HIP IN OPERATING RM; NO CHG FLUORO COMPLETED DATE/TIME: 03/05/2017 10:45 am REASON FOR STUDY: PERC RIGHT HIP PINNING ASSISTED WITH C-ARM FLUORO COMPARISON: None. FLUOROSCOPY TIME: 0.8 minutes 3 images saved to PACS. TECHNIQUE: Intra-operative images acquired during surgical procedure to evaluate progress. NUMBER OF IMAGES: 3 spot fluoroscopic images LIMITATIONS: None. FINDINGS: 3 spot fluoroscopic images submitted for review from intraoperative guidance of right hip open reduction internal fixation. Image demonstrates 3 cannulated lag screws engaging the femoral ne ck and head. The known fracture involving the neck of the femur he is not well appreciated on the fl uoroscopic images. Please see operative report for full details regarding procedure IMPRESSION: IMAGE(S) OBTAINED DURING PROCEDURE. COMMENT: Quality ID [id number]: Final reports for procedures using fluoroscopy that document radiation exp osure indices, or exposure time and number of fluorographic images (if radiation exposure indices are not available) Please consult full operative report of the attending physician for description of the procedure. TECHNICAL DOCUMENTATION: JOB ID: [id number] [employer]- All Rights Reserved
[2017-03-05] MEDS ORDERED: ENOXAPARIN SODIUM INJ 30 MG/0.3 ML DISP.SYRIN SUBCUT ONE (12:00)
[2017-03-05] MEDS: ACETAMINOPHEN 325 MG TABLET PO PRN (12:56)
[2017-03-05] MEDS: DONEPEZIL HCL 5 MG TABLET PO SCH (12:57)
[2017-03-05] MEDS: DOCUSATE SODIUM 100 MG CAPSULE PO SCH ×2 (12:58→17:09)
[2017-03-05] MEDS: AMLODIPINE BESYLATE 5 MG TABLET PO SCH (13:02)
[2017-03-05] MEDS: LEVOTHYROXINE SODIUM 0.1 MG TABLET PO SCH (13:03)
[2017-03-05] MEDS: METOPROLOL TARTRATE 50 MG TABLET PO SCH ×2 (13:40→21:52)
[2017-03-05] MEDS: IBUPROFEN 800 MG in NORMAL SALINE 250 ML IV SCH ×2 (13:47→21:52)
--- NOTE | 2017-03-05 13:48 | PDOC PROGRESS REPORT ---
Subjective Progress Note for:: 03/05/17 Subjective:: reason for visit: f/u hip fx, HTN, DM hospital course: "RUTH ANN MATUTE is a 86 year old female with underlying hypertension, type 2 diabetes mellitus, hypothyroidism, hyperlipidemia, mild reflux, mild bruising, arthritis and gout, "slight" dementia, along with partial hearing loss who presents to the emergency room for evaluation of above complaint. She is a resident of [facility]. And she was attempting to walk earlier today, she reached to grab a cart on wheels and it reportedly rolled out from under her. She fell, striking her right hand hip and forehead. No loss of consciousness. Workup has revealed closed right hip fracture. Emergency room physician has discussed with Dr. Sanford, on-call orthopedics, who has agreed to manage her orthopedic problems. Prior to the above event, no specific complaints, including nausea vomiting, fever or chills , chest or abdominal pain, diarrhea or dysuria. Patient states that on a normal day, she tries to walk at least 1/2 mile a day [facility], in various stages. Never had one time. Denies any dyspnea on exertion, chest pain or claudication." i found her in bed with persistent mild distress related to the pain in her hip , dilaudid makes her very drowsy affecting her resp status and only temporarily controlling her pain. she reports sharp, stabbing, throbbing constant pain in the Rt hip radiating in to her thigh and knee, asct'd with nausea, worse with movement, some janessa rwith rest and pain meds. no other asct'd symptoms. she denies chest pain, palpitations, fever/chills, cough, phlegm, vomiting or diarrhea. ROS: all systems reviewed, see HPI, remaining systems negative Physical Exam Vital Signs: Temp Pulse Resp BP Pulse Ox 98.4 F 65 17 159/69 H 95 03/05/17 11:38 03/05/17 11:38 03/05/17 11:38 03/05/17 11:38 03/05/17 11:38 Intake & Output 03/04/17 03/05/17 03/06/17 06:59 06:59 06:59 Intake Total 343 750 Output Total 370 Balance 343 380 General appearance: PRESENT: mild distress, well-developed, well-nourished Head exam: PRESENT: atraumatic, normocephalic Eye exam: PRESENT: EOMI. ABSENT: conjunctival injection, scleral icterus Mouth exam: PRESENT: moist, neck supple Neck exam: PRESENT: full ROM. ABSENT: tracheal deviation Respiratory exam: PRESENT: clear to auscultation ramin. ABSENT: accessory muscle use, unlabored, wheezes Cardiovascular exam: PRESENT: RRR, systolic murmur - soft, maybe 2/6 murmur at apex Pulses: PRESENT: normal radial pulses, normal dorsalis pedis pul GI/Abdominal exam: PRESENT: normal bowel sounds, soft. ABSENT: tenderness Extremities exam: PRESENT: tenderness - bruising and swelling over the olecranon with tendernesss to palpation; good sensation distally and ROM at the ankle, no pallor, warm and dry skin distally Neurological exam: PRESENT: alert, awake, oriented to person, oriented to place , oriented to time Psychiatric exam: PRESENT: appropriate affect, normal mood Results Laboratory Results: 03/04/17 23:05 Free T4 1.20 Free T3 pg/mL 4.06 Impressions: Hip/Pelvis X-Ray 03/04/17 17:17 IMPRESSION: Impacted fracture of the right femoral neck. Hand X-Ray 03/04/17 17:49 IMPRESSION: DEGENERATIVE CHANGE ABOVE WITHOUT ACUTE OSSEOUS ABNORMALITY IDENTIFIED. Head CT 03/04/17 17:49 IMPRESSION: SOFT TISSUE INJURY WITHOUT FRACTURE OR ACUTE INTRACRANIAL PROCESS IDENTIFIED. Chest X-Ray 03/04/17 19:34 IMPRESSION: NO ACUTE RADIOGRAPHIC FINDING IN THE CHEST. Fluoroscopy 03/05/17 00:00 IMPRESSION: IMAGE(S) OBTAINED DURING PROCEDURE. Hip X-Ray 03/05/17 00:00 IMPRESSION: IMAGE(S) OBTAINED DURING PROCEDURE. Status: Image reviewed by me Assessment & Plan - Diagnosis (1) Fracture of femoral neck, right, closed Qualifiers: Encounter type: initial encounter Qualified Code(s): S72.001A - Fracture of unspecified part of neck of right femur, initial encounter for closed fracture Is this a current diagnosis for this admission?: YesPlan: dr sanford to the OR later today (2) Diabetes mellitus type 2 in obese Is this a current diagnosis for this admission?: YesPlan: continue home regimen, cover with SSI (3) HLD (hyperlipidemia) Qualifiers: Hyperlipidemia type: unspecified Qualified Code(s): E78.5 - Hyperlipidemia, unspecified Is this a current diagnosis for this admission?: YesPlan: continue home regimen (4) HTN (hypertension) Qualifiers: Hypertension type: essential hypertension Qualified Code(s): I10 - Essential (primary) hypertension Is this a current diagnosis for this admission?: YesPlan: continue home regimen; continue perioperative beta hector - Time Time Spent with patient: 15-24 minutes Anticipated discharge: Acute Rehab Within: within 72 hours
[2017-03-05] MEDS ORDERED: IBUPROFEN 800 MG in NORMAL SALINE 250 ML IV SCH (14:00)
[2017-03-05] MEDS ORDERED: ERGOCALCIFEROL (VITAMIN D2) 50000 UNIT (1.25 MG) CAPSULE PO ONE (17:00)
[2017-03-05] MEDS: INSULIN LISPRO 100 UNIT/ML 3 ML VIAL SUBCUT PRN ×2 (17:10→22:50)
[2017-03-05] MEDS: CEFAZOLIN 2 GM/D5W RTU 2 GM/50 ML RTUPB IV SCH (17:11)
[2017-03-05] MEDS ORDERED: CEFAZOLIN 2 GM/D5W RTU 2 GM/50 ML RTUPB IV SCH (18:00)
[2017-03-05] MEDS: ENOXAPARIN SODIUM INJ 40 MG/0.4 ML DISP.SYRIN SUBCUT SCH (21:51)
[2017-03-05] MEDS: ATORVASTATIN CALCIUM 10 MG TABLET PO SCH (21:52)
[2017-03-05] MEDS: SERTRALINE HCL 50 MG TABLET PO SCH (21:53)
[2017-03-05] MEDS ORDERED: ENOXAPARIN SODIUM INJ 30 MG/0.3 ML DISP.SYRIN SUBCUT SCH ×2 (22:00)
[2017-03-06] MEDS: CEFAZOLIN 2 GM/D5W RTU 2 GM/50 ML RTUPB IV SCH ×3 (02:02→17:08)
[2017-03-06 05:07] LABS: HEMATOCRIT 34.2 % (36.0-47.0); HEMOGLOBIN 11.1 g/dL (12.0-15.5); HGB HCT DIFFERENCE -0.9; MEAN CORPUSCULAR HEMOGLOBIN 27.8 pg (27.0-33.4); MEAN CORPUSCULAR HGB CONC 32.5 g/dL (32.0-36.0); MEAN CORPUSCULAR VOLUME 86 fl (80-97); RED CELL DISTRIBUTION WIDTH 15.5 % (11.5-14.0); WHITE BLOOD COUNT 10.8 10^3/uL (4.0-10.5)
[2017-03-06 05:22] LABS: ANION GAP 11 (5-19); BLOOD UREA NITROGEN 10 mg/dL (7-20); CALCIUM 8.8 mg/dL (8.4-10.2); CARBON DIOXIDE 27 mmol/L (22-30); CHLORIDE 103 mmol/L (98-107); CREATININE RESULT 0.53 mg/dL (0.52-1.25); GLUCOSE 176 mg/dL (75-110); POTASSIUM 4.2 mmol/L (3.6-5.0); SODIUM 140.8 mmol/L (137-145)
[2017-03-06] MEDS: IBUPROFEN 800 MG in NORMAL SALINE 250 ML IV SCH ×3 (06:00→22:01)
--- NOTE | 2017-03-06 06:58 | PDOC PROGRESS REPORT ---
Subjective Progress Note for:: 03/06/17 Subjective:: Patient reports less pain than yesterday Physical Exam Vital Signs: Temp Pulse Resp BP Pulse Ox 37.0 C 66 16 151/64 H 95 03/06/17 04:00 03/06/17 04:00 03/06/17 04:00 03/06/17 04:00 03/06/17 04:00 Intake & Output 03/04/17 03/05/17 03/06/17 06:59 06:59 06:59 Intake Total 343 2320 Output Total 2195 Balance 343 125 General appearance: PRESENT: no acute distress Head exam: PRESENT: normocephalic Respiratory exam: PRESENT: unlabored Cardiovascular exam: PRESENT: RRR Pulses: PRESENT: +1 pedal pulses bilateral GI/Abdominal exam: PRESENT: soft Rectal exam: PRESENT: deferred Extremities exam: PRESENT: other - Right lower extremity dressing clean dry and intact. There is mild tenderness to palpation. Passive range of motion of the right lower extremity is without significant discomfort. Leg lengths are equal. Distal neurovascular examination is intact. Neurological exam: PRESENT: alert Skin exam: PRESENT: dry, intact, warm. ABSENT: cyanosis, rash Results Laboratory Results: 03/06/17 04:15 03/06/17 04:15 03/06/17 03/06/17 04:15 04:15 WBC 10.8 H RBC 4.00 Hgb 11.1 L Hct 34.2 L MCV 86 MCH 27.8 MCHC 32.5 RDW 15.5 H Plt Count 181 Sodium 140.8 Potassium 4.2 Chloride 103 Carbon Dioxide 27 Anion Gap 11 BUN 10 Creatinine 0.53 Est GFR ( Amer) > 60 Est GFR (Non-Af Amer) > 60 Glucose 176 H Calcium 8.8 Impressions: Hip/Pelvis X-Ray 03/04/17 17:17 IMPRESSION: Impacted fracture of the right femoral neck. Hand X-Ray 03/04/17 17:49 IMPRESSION: DEGENERATIVE CHANGE ABOVE WITHOUT ACUTE OSSEOUS ABNORMALITY IDENTIFIED. Head CT 03/04/17 17:49 IMPRESSION: SOFT TISSUE INJURY WITHOUT FRACTURE OR ACUTE INTRACRANIAL PROCESS IDENTIFIED. Chest X-Ray 03/04/17 19:34 IMPRESSION: NO ACUTE RADIOGRAPHIC FINDING IN THE CHEST. Fluoroscopy 03/05/17 00:00 IMPRESSION: IMAGE(S) OBTAINED DURING PROCEDURE. Hip X-Ray 06/14/17 00:00 IMPRESSION: IMAGE(S) OBTAINED DURING PROCEDURE. Status: Imported from PACS Assessment & Plan - Diagnosis (1) Right femoral fracture Qualifiers: Encounter type: initial encounter Femur location: neck Fracture type: closed Qualified Code(s): S72.001A - Fracture of unspecified part of neck of right femur, initial encounter for closed fracture Is this a current diagnosis for this admission?: YesPlan: 86-year-old white female status post percutaneous pinning of a right femoral neck fracture yesterday. Plan will be for touchdown weightbearing for 6 weeks.
--- NOTE | 2017-03-06 08:54 | Physician Advisory Note ---
Physician Advisor ProgressNote .: Pursuant to the plan for [facility], I have reviewed the medical record for this patient. Physician Advisor Statement: Please consider documentin. "Possible Anemia of acute blood loss due to femur fx" - if you don't think it was all just hemodilution from IVF. [Hgb 12.7 dropped to 11.1, no previous H/H levels in computer records to compare.] Thanks! CK
[2017-03-06] MEDS: AMLODIPINE BESYLATE 5 MG TABLET PO SCH (10:07)
[2017-03-06] MEDS: METOPROLOL TARTRATE 50 MG TABLET PO SCH ×2 (10:07→22:02)
[2017-03-06] MEDS: DONEPEZIL HCL 5 MG TABLET PO SCH (10:07)
[2017-03-06] MEDS: DOCUSATE SODIUM 100 MG CAPSULE PO SCH ×2 (10:07→17:08)
[2017-03-06] MEDS: VALSARTAN 160 MG TABLET PO SCH (10:08)
[2017-03-06] MEDS: LEVOTHYROXINE SODIUM 0.1 MG TABLET PO SCH (10:08)
--- NOTE | 2017-03-06 10:54 | PDOC PROGRESS REPORT ---
Subjective Progress Note for:: 03/06/17 Subjective:: reason for visit: f/u hip fx, HTN, DM hospital course: "RUTH ANN MATUTE is a 86 year old female with underlying hypertension, type 2 diabetes mellitus, hypothyroidism, hyperlipidemia, mild reflux, mild bruising, arthritis and gout, "slight" dementia, along with partial hearing loss who presents to the emergency room for evaluation of above complaint. She is a resident of [facility]. And she was attempting to walk earlier today, she reached to grab a cart on wheels and it reportedly rolled out from under her. She fell, striking her right hand hip and forehead. No loss of consciousness. Workup has revealed closed right hip fracture. Emergency room physician has discussed with Dr. Orta, on-call orthopedics, who has agreed to manage her orthopedic problems. Prior to the above event, no specific complaints, including nausea vomiting, fever or chills , chest or abdominal pain, diarrhea or dysuria. Patient states that on a normal day, she tries to walk at least 1/2 mile a day [facility], in various stages. Never had one time. Denies any dyspnea on exertion, chest pain or claudication." i initially found her in bed with persistent mild distress related to the pain in her hip, dilaudid makes her very drowsy affecting her resp status and only temporarily controlling her pain. she reports her pain much improved after surgery and denies chest pain, palpitations, cough, fevers/chills, v/d/n ROS: all systems reviewed, see HPI, remaining systems negative Physical Exam Vital Signs: Temp Pulse Resp BP Pulse Ox 99.2 F 66 15 151/59 H 95 03/06/17 08:00 03/06/17 08:00 03/06/17 08:00 03/06/17 08:00 03/06/17 08:00 Intake & Output 03/05/17 03/06/17 03/07/17 06:59 06:59 06:59 Intake Total 343 2320 Output Total 2195 Balance 343 125 General appearance: PRESENT: no acute distress, well-developed, well-nourished Head exam: PRESENT: atraumatic, normocephalic Eye exam: ABSENT: conjunctival injection, scleral icterus Neck exam: PRESENT: full ROM. ABSENT: tracheal deviation Respiratory exam: PRESENT: clear to auscultation ramin. ABSENT: accessory muscle use Cardiovascular exam: PRESENT: RRR, systolic murmur - soft at the apex Pulses: PRESENT: normal radial pulses, normal dorsalis pedis pul Vascular exam: PRESENT: normal capillary refill GI/Abdominal exam: PRESENT: normal bowel sounds, soft. ABSENT: tenderness Extremities exam: ABSENT: calf tenderness, pedal edema Musculoskeletal exam: ABSENT: full ROM - decreased Rt hip due to pain, normal inspection - wound is c/d/i Neurological exam: PRESENT: alert, awake, oriented to person, oriented to place , oriented to situation, other - good sensation at the leg and foot Psychiatric exam: PRESENT: appropriate affect, normal mood Skin exam: PRESENT: warm. ABSENT: rash Results Laboratory Results: 03/06/17 04:15 03/06/17 04:15 03/06/17 03/06/17 04:15 04:15 WBC 10.8 H RBC 4.00 Hgb 11.1 L Hct 34.2 L MCV 86 MCH 27.8 MCHC 32.5 RDW 15.5 H Plt Count 181 Sodium 140.8 Potassium 4.2 Chloride 103 Carbon Dioxide 27 Anion Gap 11 BUN 10 Creatinine 0.53 Est GFR ( Amer) > 60 Est GFR (Non-Af Amer) > 60 Glucose 176 H Calcium 8.8 Impressions: Hip/Pelvis X-Ray 03/04/17 17:17 IMPRESSION: Impacted fracture of the right femoral neck. Hand X-Ray 03/04/17 17:49 IMPRESSION: DEGENERATIVE CHANGE ABOVE WITHOUT ACUTE OSSEOUS ABNORMALITY IDENTIFIED. Head CT 03/04/17 17:49 IMPRESSION: SOFT TISSUE INJURY WITHOUT FRACTURE OR ACUTE INTRACRANIAL PROCESS IDENTIFIED. Chest X-Ray 03/04/17 19:34 IMPRESSION: NO ACUTE RADIOGRAPHIC FINDING IN THE CHEST. Fluoroscopy 03/05/17 00:00 IMPRESSION: IMAGE(S) OBTAINED DURING PROCEDURE. Hip X-Ray 03/05/17 00:00 IMPRESSION: IMAGE(S) OBTAINED DURING PROCEDURE. Assessment & Plan - Diagnosis (1) Fracture of femoral neck, right, closed Qualifiers: Encounter type: initial encounter Qualified Code(s): S72.001A - Fracture of unspecified part of neck of right femur, initial encounter for closed fracture Is this a current diagnosis for this admission?: YesPlan: after mechanical fall; improved. s/p surgical repair, further care per ortho (2) Diabetes mellitus type 2 in obese Is this a current diagnosis for this admission?: YesPlan: continue home regimen, cover with SSI (3) HLD (hyperlipidemia) Qualifiers: Hyperlipidemia type: unspecified Qualified Code(s): E78.5 - Hyperlipidemia, unspecified Is this a current diagnosis for this admission?: YesPlan: continue home regimen (4) HTN (hypertension) Qualifiers: Hypertension type: essential hypertension Qualified Code(s): I10 - Essential (primary) hypertension Is this a current diagnosis for this admission?: YesPlan: continue home regimen; continue perioperative beta hector (5) Anemia Qualifiers: Anemia type: unspecified type Qualified Code(s): D64.9 - Anemia, unspecified Is this a current diagnosis for this admission?: YesPlan: slightly worse, likely related to long bone fracture, unclear whether acute blood loss related to surgery; trend H/H - Time Time Spent with patient: 15-24 minutes Anticipated discharge: Acute Rehab Within: within 24 hours - Plan Summary Plan Summary: start PT and await rehab placement; continue supportive otherwise
[2017-03-06] MEDS: INSULIN LISPRO 100 UNIT/ML 3 ML VIAL SUBCUT PRN ×3 (12:03→23:10)
[2017-03-06] MEDS ORDERED: MAGNESIUM HYDROXIDE SUSP 30 ML UDCUP PO PRN (12:37)
[2017-03-06] MEDS: HYDROMORPHONE HCL INJ/PF 2 MG/ML AMPULE IV PRN (20:36)
[2017-03-06] MEDS: SERTRALINE HCL 50 MG TABLET PO SCH (22:02)
[2017-03-06] MEDS: ATORVASTATIN CALCIUM 10 MG TABLET PO SCH (22:03)
[2017-03-06] MEDS: ENOXAPARIN SODIUM INJ 40 MG/0.4 ML DISP.SYRIN SUBCUT SCH (22:04)
--- NOTE | 2017-03-06 22:09 | XCELERA REPORT ---
[address] [address] Transthoracic Echocardiogram Report Name: RUTH ANN MATUTE Age: 86 yrs Gender: Female : 1930 Patient Status: Inpatient Patient Location: [id number]\A Study Date: 03/06/2017 02:21 PM Height: 66 in Weight: 188 lb BSA: 1.9 m2 Procedure: A two-dimensional transthoracic echocardiogram with color flow and Doppler was performed. Study Quality: Fair. Reason For Study: MURMUR History: MURMUR. Ordering Physician: LORENA SORIA Performed By: Mariama Marcos Interpretation Summary The left ventricle is normal in size. There is normal left ventricular wall thickness. LV EF is > than 70% Left ventricular systolic function is normal. Doppler measurements suggest normal left ventricular diastolic function The left ventricular wall motion is normal. There is no thrombus. There is no ventricular septal defect visualized. The right ventricle is normal in size and function. The right atrium is normal. The left atrial size is normal. The interatrial septum is intact with no evidence for an atrial septal defect. There is mild mitral annular calcification. There is no evidence of mitral valve prolapse. There is no mitral valve stenosis. There is a moderate amount of mitral regurgitation There is no aortic valvular vegetation. There is Aortic Sclerosis without stenosis. There is no LVOT obstruction. There is a mild amount of aortic regurgitation There is no tricuspid stenosis. There is a mild amount of tricuspid regurgitation There is mild pulmonary hypertension by echo RVSP is 44 mm of Hg , with RA mean of 5. There is no pericardial effusion. MMode/2D Measurements \T\ Calculations RVDd: 3.2 cm LVIDd: 5.1 cm FS: 49.2 % Ao root diam: 2.6 cm IVSd: 1.1 cm LVIDs: 2.6 cm EDV(Teich): 123.3 ml LVPWd: 0.95 cm ESV(Teich): 24.3 ml Ao root area: 5.3 cm2 EF(Teich): 80.3 % LA dimension: 3.9 cm Doppler Measurements \T\ Calculations MV E max nisha: MV P1/2t max nisha: Ao V2 max: AI max nisha: 146.1 cm/sec 145.6 cm/sec 184.2 cm/sec 312.2 cm/sec MV A max nisha: MV P1/2t: 50.7 msec Ao max PG: AI max P.8 cm/sec 13.6 mmHg 39.0 mmHg MV E/A: 1.5 MVA(P1/2t): 4.3 cm2 AI dec slope: MV dec slope: 841.1 cm/sec2 118.6 cm/sec2 MV dec time: AI P1/2t: 0.18 sec 770.9 msec LV V1 max PG: PA V2 max: TR max nisha: 5.7 mmHg 83.9 cm/sec 312.2 cm/sec LV V1 max: PA max P.8 mmHg TR max P.4 cm/sec 39.0 mmHg Left Ventricle The left ventricle is normal in size. There is normal left ventricular wall thickness. LV EF is > than 70%. Left ventricular systolic function is normal. Doppler measurements suggest normal left ventricular diastolic function. The left ventricular wall motion is normal. There is no thrombus. There is no ventricular septal defect visualized. Right Ventricle The right ventricle is normal in size and function. Atria The right atrium is normal. The left atrial size is normal. The interatrial septum is intact with no evidence for an atrial septal defect. Mitral Valve There is mild mitral annular calcification. There is no evidence of mitral valve prolapse. There is no vegetation seen on the mitral valve. There is no mitral valve stenosis. There is a moderate amount of mitral regurgitation. Aortic Valve The aortic valve is trileaflet. The aortic valve opens well. There is no aortic valvular vegetation. There is Aortic Sclerosis without stenosis. There is no LVOT obstruction. There is a mild amount of aortic regurgitation. Tricuspid Valve There is no tricuspid stenosis. There is a mild amount of tricuspid regurgitation. There is mild pulmonary hypertension by echo. RVSP is 44 mm of Hg , with RA mean of 5. Pulmonic Valve There is no pulmonic valvular stenosis. There is no pulmonic valvular regurgitation. Great Vessels The aortic root is normal size. Effusions There is no pericardial effusion. : LORENA SORIA > Lorena Soria
[2017-03-07] MEDS: CEFAZOLIN 2 GM/D5W RTU 2 GM/50 ML RTUPB IV SCH ×2 (01:31→09:02)
[2017-03-07] MEDS: HYDROMORPHONE HCL INJ/PF 2 MG/ML AMPULE IV PRN ×3 (02:52→22:33)
[2017-03-07] MEDS: IBUPROFEN 800 MG in NORMAL SALINE 250 ML IV SCH ×2 (05:14→13:47)
[2017-03-07] MEDS: DONEPEZIL HCL 5 MG TABLET PO SCH (09:02)
[2017-03-07] MEDS: LEVOTHYROXINE SODIUM 0.1 MG TABLET PO SCH (09:02)
[2017-03-07] MEDS: VALSARTAN 160 MG TABLET PO SCH (09:02)
[2017-03-07] MEDS: AMLODIPINE BESYLATE 5 MG TABLET PO SCH (09:02)
[2017-03-07] MEDS: INSULIN LISPRO 100 UNIT/ML 3 ML VIAL SUBCUT PRN ×2 (09:02→23:28)
[2017-03-07] MEDS: METOPROLOL TARTRATE 50 MG TABLET PO SCH ×2 (09:02→22:33)
[2017-03-07] MEDS: DOCUSATE SODIUM 100 MG CAPSULE PO SCH ×2 (09:02→17:48)
--- NOTE | 2017-03-07 09:31 | PDOC TRANSFER SUMMARY ---
General - Admit/Disc Date/PCP Admission Date/Primary Care Provider: 03/04/17 20:50 JOSEPH HOU MD Discharge Date: 03/07/17 - Discharge Diagnosis (1) Fracture of femoral neck, right, closed Is this a current diagnosis for this admission?: YesSummary: s/p surgical repair per dr orta; weight bearing and rehab per his instructions (2) Diabetes mellitus type 2 in obese Is this a current diagnosis for this admission?: YesSummary: controlled; continue home regimen (3) HLD (hyperlipidemia) Is this a current diagnosis for this admission?: YesSummary: controlled, continue home regimen (4) HTN (hypertension) Is this a current diagnosis for this admission?: YesSummary: controlled, continue home regimen (5) Anemia Is this a current diagnosis for this admission?: YesSummary: no evidence for acute blood loss, likely related to long bone fracture; f/u H/H per her PCP as needed or clinically indicated - Additional Information Resuscitation Status: Full Code Discharge Diet: As Tolerated, Regular Discharge Activity: Slowly Increase Activity, Supervised Activity - weight bearing per dr orta Home Medications: Glipizide [Glucotrol Xl 5 mg Tab.er] 5 mg PO BID 11/22/12 Levothyroxine Sodium [Synthroid 0.1 mg Tablet] 100 mcg PO DAILY 11/22/12 Metformin HCl [Glucophage 500 mg Tablet] 500 mg PO BIDACBS 11/22/12 Metoprolol Tartrate [Lopressor 50 mg Tablet] 50 mg PO Q12 11/22/12 Pravastatin Sodium [Pravachol] 20 mg PO QHS 11/22/12 Sertraline HCl [Zoloft 50 mg Tablet] 50 mg PO QHS 11/22/12 Valsartan [Diovan] 320 mg PO DAILY 11/22/12 Allopurinol [Zyloprim 100 mg Tablet] 200 mg PO DAILY 03/04/17 Amlodipine Besylate [Norvasc 5 mg Tablet] 5 mg PO DAILY 03/04/17 Carboxymethylcellulose Sodium [Refresh Tears] 1 drop OU Q2HP PRN 03/04/17 Clotrimazole 1 applic TP DAILY 03/04/17 Donepezil HCl [Aricept 5 mg Tablet] 10 mg PO DAILY 03/04/17 Ergocalciferol (Vitamin D2) [Vitamin D2] 50,000 unit PO WE@1000 03/04/17 Loperamide HCl [Imodium A-D] 2 mg PO DAILYP PRN 03/04/17 Meclizine HCl 25 mg PO TID PRN 03/04/17 Nystatin 1 each PO DAILYP PRN 03/04/17 Solifenacin Succinate [Vesicare] 5 mg PO DAILY 03/04/17 Docusate Sodium [Colace 100 mg Capsule] 100 mg PO BID capsule 03/07/17 Enoxaparin Sodium [Lovenox Inj 40 mg/0.4 ml Disp.syrin] 40 mg SUBCUT QHS disp.syrin 03/07/17 Magnesium Hydroxide [Milk of Magnesia 30 ml Udcup] 30 ml PO Q48HP PRN udc 03/07 Oxycodone HCl 5 mg PO Q6HP PRN #10 capsule 03/07/17 History of Present Illness Admission Date/PCP: 03/04/17 20:50 JOSEPH HOU MD Patient complains of: hip pain after fall History of Present Illness: RUTH ANN MATUTE is a 86 year old female with underlying hypertension , type 2 diabetes mellitus, hypothyroidism, hyperlipidemia, mild reflux, mild bruising, arthritis and gout, "slight" dementia, along with partial hearing loss who presents to the emergency room for evaluation of above complaint. She is a resident of [facility]. And she was attempting to walk earlier today , she reached to grab a cart on wheels and it reportedly rolled out from under her. She fell, striking her right hand hip and forehead. No loss of consciousness. Workup has revealed closed right hip fracture. Hospital Course Hospital Course: hospital course: "Emergency room physician has discussed with Dr. Orta, on- call orthopedics, who has agreed to manage her orthopedic problems. Prior to the above event, no specific complaints, including nausea vomiting, fever or chills, chest or abdominal pain, diarrhea or dysuria. Patient states that on a normal day, she tries to walk at least 1/2 mile a day [facility], in various stages. Never had one time. Denies any dyspnea on exertion, chest pain or claudication." i found her in bed with persistent mild distress related to the pain in her hip , dilaudid makes her very drowsy affecting her resp status and only temporarily controlling her pain. she reports sharp, stabbing, throbbing constant pain in the Rt hip radiating in to her thigh and knee, asct'd with nausea, worse with movement, some janessa rwith rest and pain meds. no other asct'd symptoms. she denies chest pain, palpitations, fever/chills, cough, phlegm, vomiting or diarrhea. she was admitted and underwent surgical repair same day by dr orta without complication, tolerating the procedure well. she is hemodynamically stable for transfer to rehab with weight bearing and rehab instructions per dr orta. alcocer removed prior to d/c. Rx for analgesics provided. f/u with PCP in one week for routine hospital f/u and f/u with ortho as instructed, wound care per dr orta. Physical Exam Vital Signs: Temp Pulse Resp BP Pulse Ox 98.3 F 62 18 151/73 H 98 03/07/17 07:37 03/07/17 07:37 03/07/17 07:37 03/07/17 07:37 03/07/17 07:37 Intake & Output 03/06/17 03/07/17 03/08/17 06:59 06:59 06:59 Intake Total 2320 2000 Output Total 2195 3000 Balance 125 -1000 Results Laboratory Results: 03/06/17 04:15 03/06/17 04:15 Impressions: Hip/Pelvis X-Ray 03/04/17 17:17 IMPRESSION: Impacted fracture of the right femoral neck. Hand X-Ray 03/04/17 17:49 IMPRESSION: DEGENERATIVE CHANGE ABOVE WITHOUT ACUTE OSSEOUS ABNORMALITY IDENTIFIED. Head CT 03/04/17 17:49 IMPRESSION: SOFT TISSUE INJURY WITHOUT FRACTURE OR ACUTE INTRACRANIAL PROCESS IDENTIFIED. Chest X-Ray 03/04/17 19:34 IMPRESSION: NO ACUTE RADIOGRAPHIC FINDING IN THE CHEST. Fluoroscopy 03/05/17 00:00 IMPRESSION: IMAGE(S) OBTAINED DURING PROCEDURE. Hip X-Ray 03/05/17 00:00 IMPRESSION: IMAGE(S) OBTAINED DURING PROCEDURE. Transfer Plan - Disposition Transfer Plan: to acute rehab for continuing care after surgical repair of her hip - Time Spent with Patient Time spent with patient: Greater than 30 Minutes Qualifiers PATEINT BEING DISCHARGED WITH ANY OF THE FOLLOWING DIAGNOSIS?: No VTE patient discharged on overlapping Therapy?: Yes
[2017-03-07] MEDS: ATORVASTATIN CALCIUM 10 MG TABLET PO SCH (22:33)
[2017-03-07] MEDS: SERTRALINE HCL 50 MG TABLET PO SCH (22:33)
[2017-03-07] MEDS: ENOXAPARIN SODIUM INJ 40 MG/0.4 ML DISP.SYRIN SUBCUT SCH (22:34)
[2017-03-08] MEDS: HYDROMORPHONE HCL INJ/PF 2 MG/ML AMPULE IV PRN (04:55)
--- NOTE | 2017-03-08 08:00 | PDOC PROGRESS REPORT ---
Subjective Progress Note for:: 03/08/17 Subjective:: Patient complains of pain in the right hip associated with mobilization. Physical Exam Vital Signs: Temp Pulse Resp BP Pulse Ox 37.5 C 72 17 174/70 H 95 03/08/17 03:47 03/08/17 07:00 03/08/17 03:47 03/08/17 03:47 03/08/17 03:47 Intake & Output 03/07/17 03/08/17 03/09/17 06:59 06:59 06:59 Intake Total 2000 740 Output Total 3000 Balance -1000 740 General appearance: PRESENT: mild distress Head exam: PRESENT: normocephalic Eye exam: PRESENT: other - Periorbital ecchymosis on the right Respiratory exam: PRESENT: unlabored Cardiovascular exam: PRESENT: RRR Vascular exam: PRESENT: normal capillary refill GI/Abdominal exam: PRESENT: soft Rectal exam: PRESENT: deferred Extremities exam: PRESENT: other - Lower extremity dressing clean dry and intact. Leg lengths are equal. Distal neurovascular examination is intact. Results Laboratory Results: 03/06/17 04:15 03/06/17 04:15 Impressions: Hip/Pelvis X-Ray 03/04/17 17:17 IMPRESSION: Impacted fracture of the right femoral neck. Hand X-Ray 03/04/17 17:49 IMPRESSION: DEGENERATIVE CHANGE ABOVE WITHOUT ACUTE OSSEOUS ABNORMALITY IDENTIFIED. Head CT 03/04/17 17:49 IMPRESSION: SOFT TISSUE INJURY WITHOUT FRACTURE OR ACUTE INTRACRANIAL PROCESS IDENTIFIED. Chest X-Ray 03/04/17 19:34 IMPRESSION: NO ACUTE RADIOGRAPHIC FINDING IN THE CHEST. Fluoroscopy 03/05/17 00:00 IMPRESSION: IMAGE(S) OBTAINED DURING PROCEDURE. Hip X-Ray 03/05/17 00:00 IMPRESSION: IMAGE(S) OBTAINED DURING PROCEDURE. Status: Imported from PACS Assessment & Plan - Diagnosis (1) Right femoral fracture Qualifiers: Encounter type: initial encounter Femur location: neck Fracture type: closed Qualified Code(s): S72.001A - Fracture of unspecified part of neck of right femur, initial encounter for closed fracture Is this a current diagnosis for this admission?: YesPlan: Patient is being mobilized on a touchdown weightbearing restriction. Plan for halfway facility placement. Follow-up with Dr. Orta in the [facility] surgery in 2 weeks for staple removal.
[2017-03-08] MEDS: INSULIN LISPRO 100 UNIT/ML 3 ML VIAL SUBCUT PRN ×3 (09:28→17:08)
[2017-03-08] MEDS: AMLODIPINE BESYLATE 5 MG TABLET PO SCH (09:29)
[2017-03-08] MEDS: METOPROLOL TARTRATE 50 MG TABLET PO SCH ×2 (09:29→22:06)
[2017-03-08] MEDS: VALSARTAN 160 MG TABLET PO SCH (09:30)
[2017-03-08] MEDS: DONEPEZIL HCL 5 MG TABLET PO SCH (09:30)
[2017-03-08] MEDS: LEVOTHYROXINE SODIUM 0.1 MG TABLET PO SCH (09:30)
[2017-03-08] MEDS: DOCUSATE SODIUM 100 MG CAPSULE PO SCH ×2 (09:30→17:09)
[2017-03-08] MEDS ORDERED: BISACODYL 10 MG SUPP.RECT PR ONE (10:00)
--- NOTE | 2017-03-08 10:06 | PDOC PROGRESS REPORT ---
Subjective Progress Note for:: 03/08/17 Subjective:: reason for visit: f/u hip fx, HTN, DM hospital course: "RUTH ANN MATUTE is a 86 year old female with underlying hypertension, type 2 diabetes mellitus, hypothyroidism, hyperlipidemia, mild reflux, mild bruising, arthritis and gout, "slight" dementia, along with partial hearing loss who presents to the emergency room for evaluation of above complaint. She is a resident of [facility]. And she was attempting to walk earlier today, she reached to grab a cart on wheels and it reportedly rolled out from under her. She fell, striking her right hand hip and forehead. No loss of consciousness. Workup has revealed closed right hip fracture. Emergency room physician has discussed with Dr. Orta, on-call orthopedics, who has agreed to manage her orthopedic problems. Prior to the above event, no specific complaints, including nausea vomiting, fever or chills , chest or abdominal pain, diarrhea or dysuria. Patient states that on a normal day, she tries to walk at least 1/2 mile a day [facility], in various stages. Never had one time. Denies any dyspnea on exertion, chest pain or claudication." i initially found her in bed with persistent mild distress related to the pain in her hip, dilaudid makes her very drowsy affecting her resp status and only temporarily controlling her pain. she reports her pain much improved after surgery and denies chest pain, palpitations, cough, fevers/chills, v/d/n. she has some appropriate pain in the hip, especially with ROM ROS: all systems reviewed, see HPI, remaining systems negative Physical Exam Vital Signs: Temp Pulse Resp BP Pulse Ox 99.5 F 70 17 158/62 H 93 03/08/17 07:40 03/08/17 07:40 03/08/17 07:40 03/08/17 07:40 03/08/17 07:40 Intake & Output 03/07/17 03/08/17 03/09/17 06:59 06:59 06:59 Intake Total 2000 740 Output Total 3000 Balance -1000 740 General appearance: PRESENT: no acute distress, well-developed, well-nourished Head exam: PRESENT: atraumatic, normocephalic Eye exam: ABSENT: conjunctival injection, scleral icterus Neck exam: PRESENT: full ROM. ABSENT: tracheal deviation Respiratory exam: PRESENT: clear to auscultation ramin. ABSENT: accessory muscle use Cardiovascular exam: PRESENT: RRR, systolic murmur - soft at the apex Pulses: PRESENT: normal radial pulses, normal dorsalis pedis pul Vascular exam: PRESENT: normal capillary refill GI/Abdominal exam: PRESENT: normal bowel sounds, soft. ABSENT: tenderness Extremities exam: ABSENT: calf tenderness, pedal edema Musculoskeletal exam: ABSENT: full ROM - decreased Rt hip due to pain, normal inspection - wound is c/d/i Neurological exam: PRESENT: alert, awake, oriented to person, oriented to place , oriented to situation, other - good sensation at the leg and foot Psychiatric exam: PRESENT: appropriate affect, normal mood Skin exam: PRESENT: warm. ABSENT: rash Results Laboratory Results: 03/06/17 04:15 03/06/17 04:15 Assessment & Plan - Diagnosis (1) Fracture of femoral neck, right, closed Qualifiers: Encounter type: initial encounter Qualified Code(s): S72.001A - Fracture of unspecified part of neck of right femur, initial encounter for closed fracture Is this a current diagnosis for this admission?: YesPlan: after mechanical fall; improved. s/p surgical repair, further care per ortho (2) Diabetes mellitus type 2 in obese Is this a current diagnosis for this admission?: Yes (3) HLD (hyperlipidemia) Qualifiers: Hyperlipidemia type: unspecified Qualified Code(s): E78.5 - Hyperlipidemia, unspecified Is this a current diagnosis for this admission?: Yes (4) HTN (hypertension) Qualifiers: Hypertension type: essential hypertension Qualified Code(s): I10 - Essential (primary) hypertension Is this a current diagnosis for this admission?: Yes (5) Anemia Qualifiers: Anemia type: unspecified type Qualified Code(s): D64.9 - Anemia, unspecified Is this a current diagnosis for this admission?: Yes (6) Constipation Qualifiers: Constipation type: drug induced constipation Qualified Code(s): K59.03 - Drug induced constipation Is this a current diagnosis for this admission?: YesPlan: new; add cathartic and monitor for response - Time Time Spent with patient: 15-24 minutes Medications reviewed and adjusted accordingly: Yes Anticipated discharge: Acute Rehab Within: within 48 hours
[2017-03-08] MEDS: OXYCODONE HCL IR 5 MG TABLET PO PRN ×2 (14:13→20:50)
[2017-03-08] MEDS: ALLOPURINOL 100 MG TABLET PO PRN (15:00)
[2017-03-08] MEDS: ATORVASTATIN CALCIUM 10 MG TABLET PO SCH (22:05)
[2017-03-08] MEDS: ENOXAPARIN SODIUM INJ 40 MG/0.4 ML DISP.SYRIN SUBCUT SCH (22:05)
[2017-03-08] MEDS: SERTRALINE HCL 50 MG TABLET PO SCH (22:06)
[2017-03-09] MEDS: HYDROMORPHONE HCL INJ/PF 2 MG/ML AMPULE IV PRN (00:31)
[2017-03-09] MEDS: ALLOPURINOL 100 MG TABLET PO PRN (09:01)
[2017-03-09] MEDS: VALSARTAN 160 MG TABLET PO SCH (09:01)
[2017-03-09] MEDS: DONEPEZIL HCL 5 MG TABLET PO SCH (09:03)
[2017-03-09] MEDS: METOPROLOL TARTRATE 50 MG TABLET PO SCH ×2 (09:03→22:15)
[2017-03-09] MEDS: DOCUSATE SODIUM 100 MG CAPSULE PO SCH ×2 (09:03→17:26)
[2017-03-09] MEDS: LEVOTHYROXINE SODIUM 0.1 MG TABLET PO SCH (09:04)
[2017-03-09] MEDS: INSULIN LISPRO 100 UNIT/ML 3 ML VIAL SUBCUT PRN ×4 (09:04→22:16)
[2017-03-09] MEDS: AMLODIPINE BESYLATE 5 MG TABLET PO SCH (09:04)
[2017-03-09] MEDS: OXYCODONE HCL IR 5 MG TABLET PO PRN ×3 (09:39→22:16)
--- NOTE | 2017-03-09 10:58 | PDOC PROGRESS REPORT ---
Subjective Progress Note for:: 03/09/17 Subjective:: reason for visit: f/u hip fx, HTN, DM hospital course: "RUTH ANN MATUTE is a 86 year old female with underlying hypertension, type 2 diabetes mellitus, hypothyroidism, hyperlipidemia, mild reflux, mild bruising, arthritis and gout, "slight" dementia, along with partial hearing loss who presents to the emergency room for evaluation of above complaint. She is a resident of [facility]. And she was attempting to walk earlier today, she reached to grab a cart on wheels and it reportedly rolled out from under her. She fell, striking her right hand hip and forehead. No loss of consciousness. Workup has revealed closed right hip fracture. Emergency room physician has discussed with Dr. Orta, on-call orthopedics, who has agreed to manage her orthopedic problems. Prior to the above event, no specific complaints, including nausea vomiting, fever or chills , chest or abdominal pain, diarrhea or dysuria. Patient states that on a normal day, she tries to walk at least 1/2 mile a day [facility], in various stages. Never had one time. Denies any dyspnea on exertion, chest pain or claudication." Prior to surgery, i initially found her in bed with persistent mild distress related to the pain in her hip, dilaudid makes her very drowsy affecting her resp status and only temporarily controlling her pain. she reports her pain much improved after surgery. denies chest pain, palpitations, cough, fevers/chills, v/d/n. she has some appropriate pain in the hip, especially with ROM ROS: all systems reviewed, see HPI, remaining systems negative Physical Exam Vital Signs: Temp Pulse Resp BP Pulse Ox 98.7 F 66 17 167/71 H 93 03/09/17 07:39 03/09/17 07:39 03/09/17 07:39 03/09/17 07:39 03/09/17 07:39 Intake & Output 03/08/17 03/09/17 03/10/17 06:59 06:59 06:59 Intake Total 740 1280 Output Total 2 Balance 740 1278 General appearance: PRESENT: no acute distress, well-developed, well-nourished Head exam: PRESENT: atraumatic, normocephalic Eye exam: ABSENT: conjunctival injection, scleral icterus Neck exam: PRESENT: full ROM. ABSENT: tracheal deviation Respiratory exam: PRESENT: clear to auscultation ramin. ABSENT: accessory muscle use Cardiovascular exam: PRESENT: RRR, systolic murmur - soft at the apex Pulses: PRESENT: normal radial pulses, normal dorsalis pedis pul Vascular exam: PRESENT: normal capillary refill GI/Abdominal exam: PRESENT: normal bowel sounds, soft. ABSENT: tenderness Extremities exam: ABSENT: calf tenderness, pedal edema Musculoskeletal exam: ABSENT: full ROM - decreased Rt hip due to pain, normal inspection - wound is c/d/i Neurological exam: PRESENT: alert, awake, oriented to person, oriented to place , oriented to situation, other - good sensation at the leg and foot Psychiatric exam: PRESENT: appropriate affect, normal mood Skin exam: PRESENT: warm. ABSENT: rash Results Laboratory Results: 03/06/17 04:15 03/06/17 04:15 Impressions: Hip/Pelvis X-Ray 03/04/17 17:17 IMPRESSION: Impacted fracture of the right femoral neck. Hand X-Ray 03/04/17 17:49 IMPRESSION: DEGENERATIVE CHANGE ABOVE WITHOUT ACUTE OSSEOUS ABNORMALITY IDENTIFIED. Head CT 03/04/17 17:49 IMPRESSION: SOFT TISSUE INJURY WITHOUT FRACTURE OR ACUTE INTRACRANIAL PROCESS IDENTIFIED. Chest X-Ray 03/04/17 19:34 IMPRESSION: NO ACUTE RADIOGRAPHIC FINDING IN THE CHEST. Fluoroscopy 03/05/17 00:00 IMPRESSION: IMAGE(S) OBTAINED DURING PROCEDURE. Hip X-Ray 03/05/17 00:00 IMPRESSION: IMAGE(S) OBTAINED DURING PROCEDURE. Assessment & Plan - Diagnosis (1) Fracture of femoral neck, right, closed Qualifiers: Encounter type: initial encounter Qualified Code(s): S72.001A - Fracture of unspecified part of neck of right femur, initial encounter for closed fracture Is this a current diagnosis for this admission?: Yes (2) Diabetes mellitus type 2 in obese Is this a current diagnosis for this admission?: Yes (3) HLD (hyperlipidemia) Qualifiers: Hyperlipidemia type: unspecified Qualified Code(s): E78.5 - Hyperlipidemia, unspecified Is this a current diagnosis for this admission?: Yes (4) HTN (hypertension) Qualifiers: Hypertension type: essential hypertension Qualified Code(s): I10 - Essential (primary) hypertension Is this a current diagnosis for this admission?: Yes (5) Anemia Qualifiers: Anemia type: unspecified type Qualified Code(s): D64.9 - Anemia, unspecified Is this a current diagnosis for this admission?: Yes (6) Constipation Qualifiers: Constipation type: drug induced constipation Qualified Code(s): K59.03 - Drug induced constipation Is this a current diagnosis for this admission?: Yes - Time Time Spent with patient: 15-24 minutes Anticipated discharge: Acute Rehab Within: within 24 hours
[2017-03-09] MEDS: ACETAMINOPHEN 325 MG TABLET PO PRN (14:13)
[2017-03-09] MEDS: ATORVASTATIN CALCIUM 10 MG TABLET PO SCH (22:15)
[2017-03-09] MEDS: SERTRALINE HCL 50 MG TABLET PO SCH (22:16)
[2017-03-09] MEDS: ENOXAPARIN SODIUM INJ 40 MG/0.4 ML DISP.SYRIN SUBCUT SCH (22:16)
[2017-03-10] MEDS: HYDROMORPHONE HCL INJ/PF 2 MG/ML AMPULE IV PRN ×2 (03:06→21:37)
[2017-03-10] MEDS: OXYCODONE HCL IR 5 MG TABLET PO PRN ×2 (08:43→20:40)
[2017-03-10] MEDS: ALLOPURINOL 100 MG TABLET PO PRN (08:43)
[2017-03-10] MEDS: DONEPEZIL HCL 5 MG TABLET PO SCH (09:36)
[2017-03-10] MEDS: LEVOTHYROXINE SODIUM 0.1 MG TABLET PO SCH (09:39)
[2017-03-10] MEDS: DOCUSATE SODIUM 100 MG CAPSULE PO SCH ×2 (09:39→17:22)
[2017-03-10] MEDS: METOPROLOL TARTRATE 50 MG TABLET PO SCH ×2 (09:39→21:29)
[2017-03-10] MEDS: AMLODIPINE BESYLATE 5 MG TABLET PO SCH (09:39)
[2017-03-10] MEDS: COLCHICINE 0.6 MG TABLET PO SCH ×2 (09:39→21:30)
[2017-03-10] MEDS: VALSARTAN 160 MG TABLET PO SCH (09:39)
[2017-03-10] MEDS ORDERED: DEXAMETHASONE SOD PHOS INJ 10 MG/1 ML VIAL IV ONE (10:00)
[2017-03-10] MEDS: INSULIN LISPRO 100 UNIT/ML 3 ML VIAL SUBCUT PRN ×3 (12:58→22:06)
[2017-03-10] MEDS ORDERED: ACETAMINOPHEN 325 MG TABLET PO PRN (15:04)
[2017-03-10] MEDS ORDERED: MAGNESIUM HYDROXIDE SUSP 30 ML UDCUP PO PRN (15:07)
--- NOTE | 2017-03-10 15:29 | PDOC PROGRESS REPORT ---
Subjective Progress Note for:: 03/10/17 Subjective:: reason for visit: f/u hip fx, HTN, DM hospital course: "RUTH ANN MATUTE is a 86 year old female with underlying hypertension, type 2 diabetes mellitus, hypothyroidism, hyperlipidemia, mild reflux, mild bruising, arthritis and gout, "slight" dementia, along with partial hearing loss who presents to the emergency room for evaluation of above complaint. She is a resident of [facility]. And she was attempting to walk earlier today, she reached to grab a cart on wheels and it reportedly rolled out from under her. She fell, striking her right hand hip and forehead. No loss of consciousness. Workup has revealed closed right hip fracture. Emergency room physician has discussed with Dr. Orta, on-call orthopedics, who has agreed to manage her orthopedic problems. Prior to the above event, no specific complaints, including nausea vomiting, fever or chills , chest or abdominal pain, diarrhea or dysuria. Patient states that on a normal day, she tries to walk at least 1/2 mile a day [facility], in various stages. Never had one time. Denies any dyspnea on exertion, chest pain or claudication." Prior to surgery, i initially found her in bed with persistent mild distress related to the pain in her hip, dilaudid makes her very drowsy affecting her resp status and only temporarily controlling her pain. she reports her pain much improved after surgery. she continues to work with PT and making appropriate progress. she is c/o pain and swelling in her Rt great toe and says "I got the gout again! "; denies chest pain, palpitations, cough, fevers/chills, v/d/n. she has some appropriate pain in the hip, especially with ROM ROS: all systems reviewed, see HPI, remaining systems negative Physical Exam Vital Signs: Temp Pulse Resp BP Pulse Ox 99.4 F 67 17 168/67 H 95 03/10/17 12:15 03/10/17 12:15 03/10/17 12:15 03/10/17 12:15 03/10/17 12:15 Intake & Output 03/09/17 03/10/17 03/11/17 06:59 06:59 06:59 Intake Total 1280 1060 Output Total 2 Balance 1278 1060 General appearance: PRESENT: no acute distress, well-developed, well-nourished Head exam: PRESENT: atraumatic, normocephalic Eye exam: ABSENT: conjunctival injection, scleral icterus Neck exam: PRESENT: full ROM. ABSENT: tracheal deviation Respiratory exam: PRESENT: clear to auscultation ramin. ABSENT: accessory muscle use Cardiovascular exam: PRESENT: RRR, systolic murmur - soft at the apex Pulses: PRESENT: normal radial pulses, normal dorsalis pedis pul Vascular exam: PRESENT: normal capillary refill GI/Abdominal exam: PRESENT: normal bowel sounds, soft. ABSENT: tenderness Extremities exam: ABSENT: calf tenderness, pedal edema Musculoskeletal exam: ABSENT: full ROM - decreased Rt hip due to pain, normal inspection - wound is c/d/i; Rt great toe at proximal phalanx is hot, red and swollen and tender to palpation Neurological exam: PRESENT: alert, awake, oriented to person, oriented to place , oriented to situation, other - good sensation at the leg and foot Psychiatric exam: PRESENT: appropriate affect, normal mood Skin exam: PRESENT: warm. ABSENT: rash Results Laboratory Results: 03/06/17 04:15 03/06/17 04:15 Assessment & Plan - Diagnosis (1) Fracture of femoral neck, right, closed Qualifiers: Encounter type: initial encounter Qualified Code(s): S72.001A - Fracture of unspecified part of neck of right femur, initial encounter for closed fracture Is this a current diagnosis for this admission?: YesPlan: after mechanical fall; improved. s/p surgical repair, further care per ortho (2) Diabetes mellitus type 2 in obese Is this a current diagnosis for this admission?: YesPlan: continue home regimen, cover with SSI (3) HLD (hyperlipidemia) Qualifiers: Hyperlipidemia type: unspecified Qualified Code(s): E78.5 - Hyperlipidemia, unspecified Is this a current diagnosis for this admission?: Yes (4) HTN (hypertension) Qualifiers: Hypertension type: essential hypertension Qualified Code(s): I10 - Essential (primary) hypertension Is this a current diagnosis for this admission?: YesPlan: continue home regimen; continue perioperative beta hector (5) Anemia Qualifiers: Anemia type: unspecified type Qualified Code(s): D64.9 - Anemia, unspecified Is this a current diagnosis for this admission?: YesPlan: slightly worse, likely related to long bone fracture, unclear whether acute blood loss related to surgery; trend H/H (6) Constipation Qualifiers: Constipation type: drug induced constipation Qualified Code(s): K59.03 - Drug induced constipation Is this a current diagnosis for this admission?: YesPlan: resolved with added cathartic (7) Podagra Is this a current diagnosis for this admission?: YesPlan: new: continue allopurinol and add colchicine and single dose of dexamethasone - Time Time Spent with patient: 15-24 minutes Anticipated discharge: Acute Rehab - when bed available
[2017-03-10] MEDS: ENOXAPARIN SODIUM INJ 40 MG/0.4 ML DISP.SYRIN SUBCUT SCH (21:28)
[2017-03-10] MEDS: ATORVASTATIN CALCIUM 10 MG TABLET PO SCH (21:30)
[2017-03-10] MEDS: SERTRALINE HCL 50 MG TABLET PO SCH (21:31)
[2017-03-11] MEDS: INSULIN LISPRO 100 UNIT/ML 3 ML VIAL SUBCUT PRN ×3 (07:52→16:41)
[2017-03-11] MEDS ORDERED: LEVOTHYROXINE SODIUM 0.1 MG TABLET PO SCH (08:00)
[2017-03-11] MEDS: METOPROLOL TARTRATE 50 MG TABLET PO SCH (09:34)
[2017-03-11] MEDS: DOCUSATE SODIUM 100 MG CAPSULE PO SCH ×2 (09:34→17:45)
[2017-03-11] MEDS: COLCHICINE 0.6 MG TABLET PO SCH (09:34)
[2017-03-11] MEDS: VALSARTAN 160 MG TABLET PO SCH (09:34)
[2017-03-11] MEDS: OXYCODONE HCL IR 5 MG TABLET PO PRN ×2 (09:34→18:49)
[2017-03-11] MEDS: DONEPEZIL HCL 5 MG TABLET PO SCH (09:34)
[2017-03-11] MEDS: AMLODIPINE BESYLATE 5 MG TABLET PO SCH (09:35)
--- NOTE | 2017-03-11 10:50 | PDOC DISCHARGE SUMMARY ---
General - Admit/Disc Date/PCP Admission Date/Primary Care Provider: 03/04/17 20:50 JOSEPH HOU MD Discharge Date: 03/11/17 - Discharge Diagnosis (1) Fracture of femoral neck, right, closed Is this a current diagnosis for this admission?: YesSummary: Status post repair. She will be discharged today to subacute rehabilitation (2) Podagra Is this a current diagnosis for this admission?: YesSummary: Resolved (3) Anemia Is this a current diagnosis for this admission?: YesSummary: This is an anemia of chronic disease as well as some postoperative blood loss. Her hemoglobin is stable (4) Constipation Is this a current diagnosis for this admission?: YesSummary: Continue bowel regimen (5) Diabetes mellitus type 2 in obese Is this a current diagnosis for this admission?: YesSummary: Stable (6) Fall Summary: She will be discharged to subacute rehabilitation - Additional Information Resuscitation Status: Full Code Discharge Diet: As Tolerated, Regular Discharge Activity: Slowly Increase Activity, Supervised Activity - weight bearing per dr sanford Home Medications: Glipizide [Glucotrol Xl 5 mg Tab.er] 5 mg PO BID 11/22/12 Levothyroxine Sodium [Synthroid 0.1 mg Tablet] 100 mcg PO DAILY 11/22/12 Metformin HCl [Glucophage 500 mg Tablet] 500 mg PO BIDACBS 11/22/12 Metoprolol Tartrate [Lopressor 50 mg Tablet] 50 mg PO Q12 11/22/12 Pravastatin Sodium [Pravachol] 20 mg PO QHS 11/22/12 Sertraline HCl [Zoloft 50 mg Tablet] 50 mg PO QHS 11/22/12 Valsartan [Diovan] 320 mg PO DAILY 11/22/12 Allopurinol [Zyloprim 100 mg Tablet] 200 mg PO DAILY 03/04/17 Amlodipine Besylate [Norvasc 5 mg Tablet] 5 mg PO DAILY 03/04/17 Carboxymethylcellulose Sodium [Refresh Tears] 1 drop OU Q2HP PRN 03/04/17 Clotrimazole 1 applic TP DAILY 03/04/17 Donepezil HCl [Aricept 5 mg Tablet] 10 mg PO DAILY 03/04/17 Ergocalciferol (Vitamin D2) [Vitamin D2] 50,000 unit PO WE@1000 03/04/17 Loperamide HCl [Imodium A-D] 2 mg PO DAILYP PRN 03/04/17 Meclizine HCl 25 mg PO TID PRN 03/04/17 Nystatin 1 each PO DAILYP PRN 03/04/17 Solifenacin Succinate [Vesicare] 5 mg PO DAILY 03/04/17 Docusate Sodium [Colace 100 mg Capsule] 100 mg PO BID capsule 03/07/17 Enoxaparin Sodium [Lovenox Inj 40 mg/0.4 ml Disp.syrin] 40 mg SUBCUT QHS disp.syrin 03/07/17 Magnesium Hydroxide [Milk of Magnesia 30 ml Udcup] 30 ml PO Q48HP PRN udc 03/07 Oxycodone HCl 5 mg PO Q6HP PRN #10 capsule 03/07/17 History of Present Illness History of Present Illness: RUTH ANN MATUTE is a 86 year old female who presented to the hospital after sustaining a fall at home. She was found to have evidence of a hip fracture. Hospital Course Hospital Course: In the emergency room she was found to have a right hip fracture. She was seen by Dr. Sanford who took her to the operating room on the day of admission. She has been waiting for a bed for subacute rehabilitation. The only issues during this hospitalization were mild with a mild flareup of gout. She received 1 dose of dexamethasone and was given colchicine with resolution of her problems. At this point I was notified by the discharge planners that she has a bed available. She is having some increased pain this morning and will be given 1 additional dose of oxycodone prior to transfer. She will be discharged today in stable condition to subacute rehabilitation. Physical Exam Vital Signs: Temp Pulse Resp BP Pulse Ox 97.9 F 74 18 171/72 H 97 03/11/17 07:11 03/11/17 07:11 03/11/17 07:11 03/11/17 07:11 03/11/17 07:11 Intake & Output 03/10/17 03/11/17 03/12/17 06:59 06:59 06:59 Intake Total 1060 887 Output Total 1800 Balance 1060 -913 General appearance: PRESENT: no acute distress, well-developed, well-nourished Head exam: PRESENT: atraumatic, normocephalic Respiratory exam: PRESENT: clear to auscultation ramin Cardiovascular exam: PRESENT: RRR, +S1, +S2. ABSENT: gallop, rubs, systolic murmur GI/Abdominal exam: PRESENT: normal bowel sounds, soft. ABSENT: tenderness Extremities exam: PRESENT: tenderness, other - She is tender to palpation over the right and hip from her surgery.. ABSENT: clubbing Musculoskeletal exam: ABSENT: ambulatory, full ROM Neurological exam: PRESENT: alert, altered, awake, oriented to time, oriented to situation Skin exam: PRESENT: dry, warm Results Laboratory Results: 03/06/17 04:15 03/06/17 04:15 Impressions: Hip/Pelvis X-Ray 03/04/17 17:17 IMPRESSION: Impacted fracture of the right femoral neck. Hand X-Ray 03/04/17 17:49 IMPRESSION: DEGENERATIVE CHANGE ABOVE WITHOUT ACUTE OSSEOUS ABNORMALITY IDENTIFIED. Head CT 03/04/17 17:49 IMPRESSION: SOFT TISSUE INJURY WITHOUT FRACTURE OR ACUTE INTRACRANIAL PROCESS IDENTIFIED. Chest X-Ray 03/04/17 19:34 IMPRESSION: NO ACUTE RADIOGRAPHIC FINDING IN THE CHEST. Fluoroscopy 03/05/17 00:00 IMPRESSION: IMAGE(S) OBTAINED DURING PROCEDURE. Hip X-Ray 03/05/17 00:00 IMPRESSION: IMAGE(S) OBTAINED DURING PROCEDURE. Qualifiers PATEINT BEING DISCHARGED WITH ANY OF THE FOLLOWING DIAGNOSIS?: No
[2017-03-11] MEDS ORDERED: OXYCODONE HCL IR 5 MG TABLET PO ONE (11:30)
[2017-03-11 16:26] VITALS: BP 147/95
== END 2017-03-11 21:10 | DRG 482 ==
LOC: ER 16:56 → UNDOADMIN 19:54 → EH 19:54 → 4N 21:21
PROVIDERS: ADMIT Family Medicine; ATTEND Family Medicine
PROC: 0QS634Z Reposition Right Upper Femur with Internal Fixation Device, Percutaneous Approach (ICD-10-PCS; principal; 2017-03-05 09:30)
DX: S72.001A Fracture of unspecified part of neck of right femur, initial encounter for closed fracture (principal); E11.9 Type 2 diabetes mellitus without complications; E78.5 Hyperlipidemia, unspecified; I10 Essential (primary) hypertension; D64.9 Anemia, unspecified; N32.81 Overactive bladder; K21.9 Gastro-esophageal reflux disease without esophagitis; M19.90 Unspecified osteoarthritis, unspecified site; M10.9 Gout, unspecified; Z79.84 Long term (current) use of oral hypoglycemic drugs; Z79.899 Other long term (current) drug therapy; W19.XXXA Unspecified fall, initial encounter; Y93.89 Activity, other specified; Y92.89 Other specified places as the place of occurrence of the external cause; Y99.8 Other external cause status; Z85.828 Personal history of other malignant neoplasm of skin; Z90.710 Acquired absence of both cervix and uterus; Z88.8 Allergy status to other drugs, medicaments and biological substances
CPT/HCPCS: 01220; 36415; 70450; 71010; 80048; 80076; 81001; 82962; 83735; 84439; 84443; 84481; 84484; 85025; 85027; 85610; 85730; 93005; 93010; 93306; 96374; 99285; G8978-GP; G8979-GP; J0690; J1100; J1170; J1650; J1741; J1815; J1885; J2250; J2704; J3490; J7030; J7050; J7120